=== PATIENT | male | born 1945 | race African-American/Black ===

== ENCOUNTER 2017-04-04 11:59 | Inpatient (IN) | payer BC, OTHER ==
--- NOTE | 2017-04-04 12:26 | PDOC ---
History of Present Illness - General Chief Complaint: Revisit, Lab Variance Stated Complaint: HIGH POTASSIUM LEVELS (PCP SENT) Time Seen by Provider: 04/04/17 12:17 History Source: Family - History of Present Illness Timing/Duration: other Associated Symptoms: reports: weakness. denies: chest pain, fever/chills, headaches, nausea/vomiting, shortness of breath Past History - Past Medical History Allergies/Adverse Reactions: Allergies Allergy/AdvReac Type Severity Reaction Status Date / Time No Known Drug Allergies Allergy Verified 04/04/17 12:08 Home Medications: Ambulatory Orders Metoprolol Succinate [Toprol Xl -] 50 mg PO DAILY 10/03/14 Olmesartan/Hydrochlorothiazide [Benicar Hct 20-12.5 mg Tablet] 1 each PO HS 12/10 Apixaban [Eliquis] 5 mg PO BID 06/03/15 Alphagan P 0.1% - 1 drop OS TID 04/04/17 Flomax 0.4 mg PO 04/04/17 Latanoprost 0.005% Eye Drops 1 drop OD DAILY 04/04/17 Neurontin 300 mg PO TID 04/04/17 Anemia: No Asthma: No Cancer: No Cardiac Disorders: Yes (PPM) CVA: Yes (TIA X2, CVA) COPD: No CHF: No Dementia: No Diabetes: No GI Disorders: No Disorders: No HTN: Yes Hypercholesterolemia: No Liver Disease: No Seizures: No Thyroid Disease: No - Surgical History Cardiac Surgery: Yes (PACEMAKER 2009) - Immunization History Immunization Up to Date: Yes - Suicide/Smoking/Psychosocial Hx Smoking History: Unknown if ever smoked Have you smoked in the past 12 months: No Hx Alcohol Use: No Drug/Substance Use Hx: No Substance Use Type: None Hx Substance Use Treatment: No Review of Systems - Review of Systems Constitutional: Yes: Weakness. No: Chills, Fever Respiratory: No: Cough, Shortness of Breath Cardiac (ROS): No: Chest Pain ABD/GI: Yes: Abdominal cramping. No: Constipated, Diarrhea, Nausea, Vomiting : Yes: Hematuria. No: Burning, Dysuria, Flank Pain *Physical Exam - Vital Signs Last Vital Signs Temp Pulse Resp BP Pulse Ox 97.5 F L 71 16 137/72 100 04/04/17 12:05 04/04/17 12:05 04/04/17 12:05 04/04/17 12:05 04/04/17 12:05 - Physical Exam General Appearance: Yes: Appropriately Dressed. No: Apparent Distress HEENT: positive: Normal Voice Neck: positive: Supple Respiratory/Chest: positive: Lungs Clear, Normal Breath Sounds. negative: Respiratory Distress Cardiovascular: positive: Regular Rate, S1, S2 Gastrointestinal/Abdominal: positive: Soft. 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 As per , patient was recently on vacation in [facility] where he developed generalized weakness with lower abdominal pain and hematuria. As per , patient went to the ER while in [facility] and had blood work done but was not transfused. [facility] they returned to the [facility] this week and was seen by Dr Tripp of urology yesterday and had lab work done and received call with results today. Patient denies any chest pain or shortness of breath : Dr Tripp PMD: Dr Gongora Spoke to covering M.Miguelangel. for Dr. Tripp, [facility] patient was seen by them for the first time yesterday for obstructive uropathy and had andres with leg bag placed. [facility] hemoglobin was 10.9, K was 6.2, and creatinine was 1.79. Based on labs here at [facility], last creatinine 06/13, was 1.5. Spoke to pt's PMD, Dr Gongora at [phone], [facility] Cr 03/14 was 1.08. Wants pt admitted for ARF which is most likely post-renal See exam ARF w/ hyperkalemia m/l 2/2 post renal (BPH) (see above notes) Pt w/ generalized weakness/malaise but stable w/ 350cc clear yellow urine in leg bag -rpt labs today -ekg -tx hyperK -admit 04/04/17 12:45 04/04/17 13:45 Signed out to resident Romero pending labs and admission to hospitalist *DC/Admit/Observation/Transfer Diagnosis at time of Disposition: Hyperkalemia - Referrals - Patient Instructions - Post Discharge Activity
[2017-04-04 13:12] LABS: BASO % 0.5 % (0-2.0); EOS % 1.2 % (0-4.5); HEMATOCRIT 31.7 % (35.4-49); HEMOGLOBIN 10.5 GM/dL (11.7-16.9); LYMPH % 16.6 % (8-40); MCH 32.2 pg (25.7-33.7); MCHC 33.1 g/dl (32.0-35.9); MEAN CELL VOLUME 97.4 fl (80-96); MEAN PLT VOLUME 8.3 fl (7.5-11.1); MONO % 6.2 % (3.8-10.2); NEUT % 75.5 % (42.8-82.8); PLATELET COUNT 292 K/MM3 (134-434); RBC 3.26 M/mm3 (4.00-5.60); RDW 13.8 % (11.9-15.9); WHITE BLOOD COUNT 11.5 K/mm3 (4.0-10.0)
[2017-04-04 13:13] LABS: URINE APPEARANCE SLCLOUDY; URINE BILIRUBIN NEGATIVE (NEGATIVE); URINE BLOOD 3+ (NEGATIVE); URINE COLOR YELLOW; URINE GLUCOSE (UA) NEGATIVE (NEGATIVE); URINE KETONE NEGATIVE (NEGATIVE); URINE NITRITE NEGATIVE (NEGATIVE); URINE PROTEIN NEGATIVE (NEGATIVE); URINE UROBILINOGEN NEGATIVE mg/dL (0.2-1.0)
[2017-04-04 13:14] LABS: URINE LEUK ESTERASE 2+ (NEGATIVE)
[2017-04-04 13:22] LABS: URINE BACTERIA RARE /hpf (NONE SEEN); URINE MUCUS RARE; YEAST FEW
[2017-04-04 13:38] LABS: ALBUMIN 3.4 g/dl (3.4-5.0); ANION GAP 3 (8-16); BILIRUBIN,TOTAL 0.3 mg/dL (0.2-1.0); BLOOD UREA NITROGEN 17 mg/dL (7-18); CALCIUM 8.5 mg/dL (8.5-10.1); CHLORIDE 104 mmol/L (98-107); CO2 27 mmol/L (21-32); CREATININE 1.8 mg/dL (0.7-1.3); GLUCOSE,RANDOM 133 mg/dL (74-106); SGOT/AST 22 U/L (15-37); SGPT/ALT 31 U/L (12-78); SODIUM 134 mmol/L (136-145); TOT PROT 7.3 g/dl (6.4-8.2)
[2017-04-04 13:40] LABS: ALK PHOS 55 U/L (45-117)
--- NOTE | 2017-04-04 14:00 | PDOC ---
*Physical Exam - Vital Signs Last Vital Signs Temp Pulse Resp BP Pulse Ox 97.5 F L 71 16 137/72 98 04/04/17 12:05 04/04/17 12:05 04/04/17 12:05 04/04/17 12:05 04/04/17 12:20 - Physical Exam Comments: 04/04/17 14:00 GENERAL/CONSTITUTIONAL: No fever or chills. No weakness. HEAD, EYES, EARS, NOSE AND THROAT: No change in vision. No ear pain or discharge. No sore throat.- CARDIOVASCULAR: No chest pain or shortness of breath RESPIRATORY: No cough, wheezing, or hemoptysis. GASTROINTESTINAL: No nausea, vomiting, diarrhea or constipation. GENITOURINARY: No dysuria, frequency, or change in urination. MUSCULOSKELETAL: No joint or muscle swelling or pain. No neck or back pain. SKIN: No rash NEUROLOGIC: No headache, vertigo, loss of consciousness, or change in strength/ sensation. ENDOCRINE: No increased thirst. No abnormal weight change HEMATOLOGIC/LYMPHATIC: No anemia, easy bleeding, or history of blood clots. ALLERGIC/IMMUNOLOGIC: No hives or skin allergy. ED Treatment Course - LABORATORY CBC & Chemistry Diagram: 04/04/17 18:45 04/05/17 05:23 - ADDITIONAL ORDERS Additional order review: Laboratory Results 04/04/17 04/04/17 13:00 13:00 Alkaline Phosphatase 55 Creatine Kinase 156 Troponin I < 0.02 Urine Color Yellow Urine Appearance Slcloudy Urine pH 6.0 Ur Specific [place] 1.006 Urine Protein Negative Urine Glucose (UA) Negative Urine Ketones Negative Urine Blood 3+ H Urine Nitrite Negative Urine Bilirubin Negative Urine Urobilinogen Negative Urine WBC (Auto) 16 Urine RBC (Auto) 57 Urine Bacteria Rare Urine Mucus Rare Urine Yeast Few 04/04/17 13:00 RBC 3.26 L D MCV 97.4 H MCHC 33.1 RDW 13.8 MPV 8.3 D Neutrophils % 75.5 Lymphocytes % 16.6 Monocytes % 6.2 Eosinophils % 1.2 D Basophils % 0.5 Medical Decision Making - Medical Decision Making 04/04/17 14:01 Received handoff by Amelia HERNANDEZ. 71 yo M with h/o CVA and HTN, DM, BPH, residual L sided motor deficit/aphasia, A -fib on Elquis, s/p pacemaker placement, arrives via referral by PMD for hyperkalemia and anemia on lab evaluation obtained yesterday in Dr. Tripp Urology office. Patient experiencing generalized weakness, lower abdominal pain , and hematuria, following vacation in [facility]. Patient denies associated complaints. ED Course notable for conversation with Dr. Tripp who states patient was seen by them for the first time yesterday for obstructive uropathy and had andres with leg bag placed. Hgb 10.9, K 6.2, and cr 1.79 ( baseline 1.08). PMD , Dr Gongora at ([phone]), advises pt to be admitted for obstructive renal failure most likely 2/2 BPH. [address] UOP andres. PCP Dr. Jesus Tripp. ED Course: 04/04/17 14:42 WBC: 11.5 04/04/17 14:42 K+ 6.0 04/04/17 15:23 D5 50 mg, NaHCO3 8.4 % 50 MeQ, Kayexylate, Insulin 10 U UA: 04/04/17 15:24 EKG: Ventricular paced rhythm with absent REINALDO, STD. Absent P waves. Will admit to Dr. Brewer for BRAD and hyperkalemia. *DC/Admit/Observation/Transfer Diagnosis at time of Disposition: Hyperkalemia - Discharge Dispostion Admit: Yes - Referrals - Patient Instructions - Post Discharge Activity
[2017-04-04 14:01] LABS: INR 1.63 (0.82-1.09); PROTHROMBIN TIME (PATIENT) 18.4 SEC (9.98-11.88)
[2017-04-04] MEDS ORDERED: SODIUM BICARBONATE 8.4% 50 MEQ/50 ML VIAL IV ONE (14:45)
[2017-04-04] MEDS ORDERED: INSULIN REGULAR HUMAN 100 UNITS/ML *VIAL IVPUSH ONE (14:45)
[2017-04-04] MEDS ORDERED: DEXTROSE 50%-WATER - 25 GM/50 ML VIAL IVPUSH ONE ×2 (14:45→15:14)
[2017-04-04] MEDS ORDERED: SODIUM POLYSTYRENE SULFONATE 15 GM/60 ML BOTTLE PO ONE (14:48)
[2017-04-04] MEDS ORDERED: DEXTROSE 50%-WATER - 25 GM/50 ML VIAL ONE (15:16)
[2017-04-04] MEDS ORDERED: INSULIN NPH 100 UNITS/ML *VIAL ONE (15:17)
[2017-04-04] MEDS ORDERED: SODIUM POLYSTYRENE SULFONATE 15 GM/60 ML BOTTLE ONE (15:17)
[2017-04-04] MEDS ORDERED: SODIUM BICARBONATE 8.4% - 50 ML ONE (15:17)
--- NOTE | 2017-04-04 16:32 | EKG ---
Test Reason : Blood Pressure : / mmHG Vent. Rate : 066 BPM Atrial Rate : 066 BPM P-R Int : 000 ms QRS Dur : 136 ms QT Int : 434 ms P-R-T Axes : 000 -86 078 degrees QTc Int : 454 ms Ventricular-paced rhythm ABNORMAL ECG WHEN COMPARED WITH ECG OF 04-JUN-2015 00:01, ELECTRONIC VENTRICULAR PACEMAKER HAS REPLACED ATRIAL FIBRILLATION Confirmed by MD KATHYA, ROXANNA ([id number]) on 04/04/2017 4:31:50 PM Referred By: Confirmed By:ROXANNA RASHEED MD
--- NOTE | 2017-04-04 16:54 | CONSULT ---
Consult Consult Specialty:: Nephrology Reason for Consultation:: hyperkalemia - History of Present Illness Chief Complaint: sent in for hyperkalemia History of Present Illness: Pt is a 71 year old male with pmhx of CVA, a-fib, HTN, BPH, DM and obstructive uropathy who was sent in to the ER for hyperkalemia. Bloodwork was done in ER and he was found to have a potassium of 6. I was called to evaluate him for CKD and hyperkalemia. He is accompanied by his who assisted with history. He does not have chest pain or shortness of breath. Pt does not have palpitations. He follows with Dr Bustamante of urology and has an indwelling andres with a leg bag. He was on an ARB as outpt. - History Source History Provided By: Family Member, Medical Record - Past Medical History [employer]: Yes: CVA Cardio/Vascular: Yes: AFIB, HTN Renal/: Yes: Renal Inusuff, BPH Endocrine: Yes: Diabetes Mellitus - Past Surgical History Past Surgical History: Yes: Permanent Pacemaker - Alcohol/Substance Use Hx Alcohol Use: No - Smoking History Smoking history: Unknown if ever smoked Have you smoked in the past 12 months: No Home Medications - Allergies Allergies/Adverse Reactions: Allergies Allergy/AdvReac Type Severity Reaction Status Date / Time No Known Drug Allergies Allergy Verified 04/04/17 12:08 - Home Medications Home Medications: Ambulatory Orders Metoprolol Succinate [Toprol Xl -] 50 mg PO DAILY 10/03/14 Olmesartan/Hydrochlorothiazide [Benicar Hct 20-12.5 mg Tablet] 1 each PO HS 12/10 Apixaban [Eliquis] 0 mg PO BID 06/03/15 Family Disease History - Family Disease History Family History: Denies Review of Systems - Review of Systems Constitutional: reports: Malaise, Weakness Eyes: reports: No Symptoms HENT: reports: No Symptoms Neck: reports: No Symptoms Cardiovascular: reports: No Symptoms Respiratory: reports: No Symptoms Gastrointestinal: reports: No Symptoms Genitourinary: reports: Other (indwelling andres) Musculoskeletal: reports: Muscle Weakness Neurological: reports: Pre-Existing Deficit Endocrine: reports: No Symptoms Hematology/Lymphatic: reports: No Symptoms Psychiatric: reports: No Symptoms Physical Exam Vital Signs: Vital Signs Temperature 97.5 F L 04/04/17 12:05 Pulse Rate 71 12/08/17 12:05 Respiratory Rate 16 04/04/17 12:05 Blood Pressure 137/72 04/04/17 12:05 O2 Sat by Pulse Oximetry (%) 98 04/04/17 12:20 Constitutional: Yes: Calm Eyes: Yes: Conjunctiva Clear HENT: Yes: Atraumatic Cardiovascular: Yes: S1, S2 Respiratory: Yes: CTA Bilaterally Gastrointestinal: Yes: Soft Renal/: Yes: Andres Present Musculoskeletal: Yes: WNL Edema: No Neurological: Yes: Pre-Existing Deficit Labs: CBC, BMP 04/04/17 13:00 04/04/17 13:00 Laboratory Tests 06/03/15 04/04/17 04/04/17 23:50 13:00 13:00 Hgb 10.5 L D Sodium Potassium Chloride Carbon Dioxide Anion Gap Creatinine 1.5 H Creat Clearance w eGFR Random Glucose Urine Protein Negative Urine Blood 3+ H 04/04/17 13:00 Hgb Sodium 134 L Potassium 6.0 H D Chloride 104 Carbon Dioxide 27 Anion Gap 3 L Creatinine 1.8 H Creat Clearance w eGFR 37.27 Random Glucose 133 H Urine Protein Urine Blood Problem List - Problems (1) CKD (chronic kidney disease) Code(s): N18.9 - CHRONIC KIDNEY DISEASE, UNSPECIFIED (2) HTN (hypertension) Code(s): I10 - ESSENTIAL (PRIMARY) HYPERTENSION (3) Atrial fibrillation Code(s): I48.91 - UNSPECIFIED ATRIAL FIBRILLATION (4) CVA (cerebral vascular accident) Code(s): I63.9 - CEREBRAL INFARCTION, UNSPECIFIED (5) Hyperkalemia Code(s): E87.5 - HYPERKALEMIA Assessment/Plan Current Medications Generic Name Dose Route Start Last Admin Trade Name Freq PRN Reason Stop Dose Admin Sodium Chloride 1,000 mls @ 100 mls/hr 04/04/17 17:00 Normal Saline - IV 04/04/17 21:59 ASDIR SUJATHA Impression 1. hyperkalemia 2. CKD 3. htn 4. a-fib 5. weakness 6. hx CVA 7. urinary obstruction with indwelling andres 8. leukocytosis Plan - potassium treated medically in ER - repeat bmp to see response - will start gentle hydration - send urine culture - send blood cultures - hold olmesartan for now - renal diet - will need renal workup which can be done as outpt - will follow
[2017-04-04] MEDS ORDERED: SODIUM CHLORIDE 1,000 ML IV SCH (17:00)
[2017-04-04 19:03] LABS: BASO % 0.6 % (0-2.0); HEMOGLOBIN 10.5 GM/dL (11.7-16.9); LYMPH % 11.7 % (8-40); MCH 32.9 pg (25.7-33.7); MEAN CELL VOLUME 96.6 fl (80-96); MEAN PLT VOLUME 8.1 fl (7.5-11.1); MONO % 5.8 % (3.8-10.2); NEUT % 80.9 % (42.8-82.8); PLATELET COUNT 297 K/MM3 (134-434); RDW 13.5 % (11.9-15.9); WHITE BLOOD COUNT 14.4 K/mm3 (4.0-10.0)
[2017-04-04 19:49] LABS: ALBUMIN 3.4 g/dl (3.4-5.0); ANION GAP 6 (8-16); BILIRUBIN,TOTAL 0.5 mg/dL (0.2-1.0); BLOOD UREA NITROGEN 16 mg/dL (7-18); CHLORIDE 106 mmol/L (98-107); CO2 27 mmol/L (21-32); CREATININE 1.7 mg/dL (0.7-1.3); GLUCOSE,RANDOM 75 mg/dL (74-106); POTASSIUM 5.1 mmol/L (3.5-5.1); SGOT/AST 26 U/L (15-37); SGPT/ALT 34 U/L (12-78); SODIUM 139 mmol/L (136-145); TOT PROT 7.1 g/dl (6.4-8.2)
[2017-04-04 19:50] LABS: ALK PHOS 55 U/L (45-117)
[2017-04-04] MEDS ORDERED: CEFTRIAXONE 1 GM/50 ML BAG ONE (20:11)
[2017-04-04 21:31] VITALS: BMI 22.8
[2017-04-05] MEDS: GABAPENTIN 300 MG CAPSULE (FP) PO SCH ×3 (06:12→21:23)
[2017-04-05] MEDS: BRIMONIDINE TARTRATE 0.1% OPHTHALMIC 5 ML BOTTLE OS SCH ×3 (06:28→21:23)
[2017-04-05] MEDS ORDERED: PT OWN MED DRAWER 7, Y5N ONE ×4 (06:32→21:12)
[2017-04-05 08:24] LABS: ANION GAP 6 (8-16); BLOOD UREA NITROGEN 19 mg/dL (7-18); CALCIUM 8.4 mg/dL (8.5-10.1); CHLORIDE 102 mmol/L (98-107); CO2 30 mmol/L (21-32); CREATININE 1.7 mg/dL (0.7-1.3); GLUCOSE,RANDOM 82 mg/dL (74-106); POTASSIUM 5.3 mmol/L (3.5-5.1); SODIUM 138 mmol/L (136-145)
[2017-04-05] MEDS: VALSARTAN 160 MG TABLET (UD) PO SCH (09:29)
[2017-04-05] MEDS: LATANOPROST 0.005% OPHTH SOLN 2.5ML BOTTLE OD SCH (09:29)
[2017-04-05] MEDS: TAMSULOSIN HCL 0.4 MG CAP.ER.24H (FP) PO SCH (09:29)
[2017-04-05] MEDS: HYDROCHLOROTHIAZIDE 12.5 MG CAPSULE (FP) PO SCH (09:29)
[2017-04-05] MEDS: APIXABAN 5 MG TABLET PO SCH ×2 (09:30→21:23)
--- NOTE | 2017-04-05 14:35 | PN ---
Progress Note (short form) - Note Progress Note: 1. hyperkalemia 2. CKD 3. htn 4. a-fib 5. weakness 6. hx CVA 7. urinary obstruction with indwelling andres 8. leukocytosis Current Medications Apixaban (Eliquis -) 5 mg PO BID [facility] Last Admin: 04/05/17 09:30 Dose: 5 mg Brimonidine Tartrate (Alphagan P 0.1% -) 1 drop OS TID [facility] Last Admin: 04/05/17 06:28 Dose: 1 drop Gabapentin (Neurontin -) 300 mg PO TID [facility] Last Admin: 04/05/17 06:12 Dose: 300 mg Hydrochlorothiazide (Hctz -) 12.5 mg PO DAILY [facility] Last Admin: 04/05/17 09:29 Dose: 12.5 mg Latanoprost (Xalatan 0.005% Eye Drops -) 1 drop OD DAILY [facility] Last Admin: 04/05/17 09:29 Dose: 1 drop Metoprolol Succinate (Toprol Xl -) 50 mg PO DAILY [facility] Last Admin: 04/05/17 09:29 Dose: 50 mg Tamsulosin HCl (Flomax -) 0.4 mg PO DAILY@0830 [facility] Last Admin: 04/05/17 09:29 Dose: 0.4 mg Valsartan (Diovan -) 160 mg PO DAILY [facility] Last Admin: 04/05/17 09:29 Dose: 160 mg Last Vital Signs Temp Pulse Resp BP Pulse Ox 97.7 F 60 18 104/62 97 04/05/17 08:09 04/05/17 08:09 04/05/17 08:09 04/05/17 08:09 04/05/17 08:42 CBC, BMP 04/04/17 18:45 04/05/17 05:23 IMP ckd priti on chronic hyperkalemia Plan - follow bmp to see response - will start gentle hydration - send urine culture - send blood cultures - hold olmesartan for now - renal diet - will need renal workup which can be done as outpt - will follow
[2017-04-05] MEDS ORDERED: PATIENT'S OWN MEDICATION (NON-FORMULARY) (Olmesartan/Hydrochlorothiazide [Benicar Hct 20-1 PO SCH (22:00)
--- NOTE | 2017-04-06 00:08 | HP ---
Admitting History and Physical - Admission Chief Complaint: Pt seen and examined on 04/05/17 however note was entered late History of Present Illness: Pt is a 71 y/o male who is a poor historian w/ PMH significant for CVA w/ lt sided weakness/aphasia, HTN, diabetes ad BPH. Pt was sent by his urologist bc of abnormal blood work. In the ER pt was found to have K+ of 6.2 wc was treated and also to have acute renal failure. As per medical record pt recently returned from [facility] and had complaints of lower abdominal pain/weakness/ hematuria. - Past Medical History [employer]: Yes: CVA Cardiovascular: Yes: AFIB, HTN Renal/: Yes: Renal Inusuff, BPH Endocrine: Yes: Diabetes Mellitus - Past Surgical History Past Surgical History: Yes: Permanent Pacemaker - Smoking History Smoking history: Unknown if ever smoked Have you smoked in the past 12 months: No - Alcohol/Substance Use Hx Alcohol Use: No Home Medications - Allergies Allergies/Adverse Reactions: Allergies Allergy/AdvReac Type Severity Reaction Status Date / Time No Known Drug Allergies Allergy Verified 04/04/17 12:08 - Home Medications Home Medications: Ambulatory Orders Metoprolol Succinate [Toprol Xl -] 50 mg PO DAILY 10/03/14 Olmesartan/Hydrochlorothiazide [Benicar Hct 20-12.5 mg Tablet] 1 each PO HS 12/10 Apixaban [Eliquis] 5 mg PO BID 06/03/15 Alphagan P 0.1% - 1 drop OS TID 04/04/17 Flomax 0.4 mg PO 04/04/17 Latanoprost 0.005% Eye Drops 1 drop OD DAILY 04/04/17 Neurontin 300 mg PO TID 04/04/17 Family Disease History - Family Disease History Family History: Unable to Obtain Review of Systems Unable to obtain ROS, reason: CVA/aphasia Physical Examination Vital Signs: Vital Signs Temperature 98 F 04/05/17 14:36 Pulse Rate 60 04/05/17 14:36 Respiratory Rate 18 04/05/17 14:36 Blood Pressure 107/58 04/05/17 14:36 O2 Sat by Pulse Oximetry (%) 97 04/05/17 22:00 Constitutional: Yes: No Distress HENT: Yes: WNL Neck: Yes: WNL, Supple Cardiovascular: Yes: WNL, Regular Rate and Rhythm Respiratory: Yes: WNL, Regular, CTA Bilaterally Gastrointestinal: Yes: WNL, Normal Bowel Sounds, Soft Extremities: Yes: WNL Edema: No Labs: CBC, BMP 04/04/17 18:45 04/05/17 05:23 Problem List - Problems (1) Hyperkalemia Code(s): E87.5 - HYPERKALEMIA (2) Acute renal failure Assessment/Plan: Gently IV hydration Renal consult Pt has h/o BPH ?obstructive uropathy Monitor urine culture Code(s): N17.9 - ACUTE KIDNEY FAILURE, UNSPECIFIED (3) Atrial fibrillation Assessment/Plan: Heart rate controlled Cont eliquis Code(s): I48.91 - UNSPECIFIED ATRIAL FIBRILLATION (4) HTN (hypertension) Assessment/Plan: BP stable Cont diovan/hctz Code(s): I10 - ESSENTIAL (PRIMARY) HYPERTENSION (5) BPH (benign prostatic hyperplasia) Assessment/Plan: Cont flomax Code(s): N40.0 - BENIGN PROSTATIC HYPERPLASIA WITHOUT LOWER URINRY TRACT SYMP (6) CVA (cerebral vascular accident) Code(s): I63.9 - CEREBRAL INFARCTION, UNSPECIFIED (7) Diabetes Assessment/Plan: ?Pt not on any meds Check HgA1c Code(s): E11.9 - TYPE 2 DIABETES MELLITUS WITHOUT COMPLICATIONS
[2017-04-06] MEDS: GABAPENTIN 300 MG CAPSULE (FP) PO SCH ×3 (05:37→21:43)
[2017-04-06] MEDS: BRIMONIDINE TARTRATE 0.1% OPHTHALMIC 5 ML BOTTLE OS SCH ×3 (05:37→21:46)
[2017-04-06 08:15] LABS: BASO % 0.8 % (0-2.0); EOS % 1.6 % (0-4.5); HEMATOCRIT 32.2 % (35.4-49); LYMPH % 22.6 % (8-40); MCH 32.6 pg (25.7-33.7); MEAN CELL VOLUME 95.9 fl (80-96); MEAN PLT VOLUME 8.2 fl (7.5-11.1); MONO % 4.8 % (3.8-10.2); NEUT % 70.2 % (42.8-82.8); PLATELET COUNT 314 K/MM3 (134-434); RBC 3.36 M/mm3 (4.00-5.60); RDW 13.2 % (11.9-15.9); WHITE BLOOD COUNT 10.7 K/mm3 (4.0-10.0)
[2017-04-06 09:08] LABS: ALBUMIN 3.1 g/dl (3.4-5.0); ANION GAP 6 (8-16); BILIRUBIN,TOTAL 0.6 mg/dL (0.2-1.0); BLOOD UREA NITROGEN 17 mg/dL (7-18); CALCIUM 8.1 mg/dL (8.5-10.1); CHLORIDE 103 mmol/L (98-107); CO2 29 mmol/L (21-32); CREATININE 1.7 mg/dL (0.7-1.3); GLUCOSE,RANDOM 99 mg/dL (74-106); POTASSIUM 4.7 mmol/L (3.5-5.1); SGOT/AST 16 U/L (15-37); SGPT/ALT 27 U/L (12-78); SODIUM 138 mmol/L (136-145)
[2017-04-06 09:09] LABS: ALK PHOS 55 U/L (45-117)
[2017-04-06] MEDS ORDERED: PT OWN MED DRAWER 7, Y5N ONE ×4 (09:19→21:45)
[2017-04-06] MEDS: HYDROCHLOROTHIAZIDE 12.5 MG CAPSULE (FP) PO SCH (09:21)
[2017-04-06] MEDS: VALSARTAN 160 MG TABLET (UD) PO SCH (09:21)
[2017-04-06] MEDS: APIXABAN 5 MG TABLET PO SCH ×2 (09:21→21:44)
[2017-04-06] MEDS: TAMSULOSIN HCL 0.4 MG CAP.ER.24H (FP) PO SCH (09:21)
[2017-04-06] MEDS: LATANOPROST 0.005% OPHTH SOLN 2.5ML BOTTLE OD SCH (09:22)
[2017-04-06] MEDS: CEFTRIAXONE 1 G/50 ML PREMIX 50 ML IVPB SCH (13:40)
--- NOTE | 2017-04-06 19:19 | PN ---
Progress Note (short form) - Note Progress Note: 1. hyperkalemia 2. CKD 3. htn 4. a-fib 5. weakness 6. hx CVA 7. urinary obstruction with indwelling andres 8. leukocytosis Active Medications Apixaban (Eliquis -) 5 mg PO BID [facility] Last Admin: 04/06/17 09:21 Dose: 5 mg Brimonidine Tartrate (Alphagan P 0.1% -) 1 drop OS TID [facility] Last Admin: 04/06/17 13:40 Dose: 1 drop Gabapentin (Neurontin -) 300 mg PO TID [facility] Last Admin: 04/06/17 13:40 Dose: 300 mg Hydrochlorothiazide (Hctz -) 12.5 mg PO DAILY [facility] Last Admin: 04/06/17 09:21 Dose: 12.5 mg CEFTRIAXONE 1 G/50 ML PREMIX (Ceftriaxone 1 Gm-D5w Bag) 50 mls @ 100 mls/hr IVPB DAILY [facility] Last Admin: 04/06/17 13:40 Dose: 100 mls/hr Latanoprost (Xalatan 0.005% Eye Drops -) 1 drop OD DAILY [facility] Last Admin: 04/06/17 09:22 Dose: 1 drop Metoprolol Succinate (Toprol Xl -) 50 mg PO DAILY [facility] Last Admin: 04/06/17 09:21 Dose: 50 mg Tamsulosin HCl (Flomax -) 0.4 mg PO DAILY@0830 [facility] Last Admin: 04/06/17 09:21 Dose: 0.4 mg Valsartan (Diovan -) 160 mg PO DAILY [facility] Last Admin: 04/06/17 09:21 Dose: 160 mg Last Vital Signs Temp Pulse Resp BP Pulse Ox 98.6 F 61 18 99/58 98 04/06/17 15:06 04/06/17 15:06 04/06/17 15:06 04/06/17 15:06 04/06/17 08:32 CBC, BMP 04/06/17 07:00 04/06/17 07:00 IMP ckd priti on chronic hyperkalemia Plan continue to monitor labs encourage hydration
--- NOTE | 2017-04-06 23:34 | PN ---
Progress Note, Physician History of Present Illness: No new complaints - Current Medication List Current Medications: Active Medications Apixaban (Eliquis -) 5 mg PO BID [facility] Last Admin: 04/06/17 21:44 Dose: 5 mg Brimonidine Tartrate (Alphagan P 0.1% -) 1 drop OS TID [facility] Last Admin: 04/06/17 21:46 Dose: 1 drop Gabapentin (Neurontin -) 300 mg PO TID [facility] Last Admin: 04/06/17 21:43 Dose: 300 mg Hydrochlorothiazide (Hctz -) 12.5 mg PO DAILY [facility] Last Admin: 04/06/17 09:21 Dose: 12.5 mg CEFTRIAXONE 1 G/50 ML PREMIX (Ceftriaxone 1 Gm-D5w Bag) 50 mls @ 100 mls/hr IVPB DAILY [facility] Last Admin: 04/06/17 13:40 Dose: 100 mls/hr Latanoprost (Xalatan 0.005% Eye Drops -) 1 drop OD DAILY [facility] Last Admin: 04/06/17 09:22 Dose: 1 drop Metoprolol Succinate (Toprol Xl -) 50 mg PO DAILY [facility] Last Admin: 04/06/17 09:21 Dose: 50 mg Tamsulosin HCl (Flomax -) 0.4 mg PO DAILY@0830 [facility] Last Admin: 04/06/17 09:21 Dose: 0.4 mg Valsartan (Diovan -) 160 mg PO DAILY [facility] Last Admin: 04/06/17 09:21 Dose: 160 mg - Objective Vital Signs: Vital Signs Temperature 98.6 F 04/06/17 15:06 Pulse Rate 61 04/06/17 15:06 Respiratory Rate 18 04/06/17 15:06 Blood Pressure 99/58 04/06/17 15:06 O2 Sat by Pulse Oximetry (%) 98 04/06/17 08:32 Constitutional: Yes: No Distress HENT: Yes: WNL Neck: Yes: WNL, Supple Cardiovascular: Yes: WNL, Regular Rate and Rhythm Respiratory: Yes: WNL, Regular, CTA Bilaterally Gastrointestinal: Yes: WNL, Normal Bowel Sounds, Soft Labs: CBC, BMP 04/06/17 07:00 04/06/17 07:00 INR, PTT INR 1.63 (0.82-1.09) H D 04/04/17 13:00 Problem List - Problems (1) Bacteremia Assessment/Plan: Blood culture (+) fo bacillus species Await final cutlure Due to UTI Cont IV antibx ID consult Code(s): R78.81 - BACTEREMIA (2) Acute renal failure Assessment/Plan: Gently IV hydration Renal consult noted Pt has h/o BPH ?obstructive uropathy Urine culture positive for lactose fermenting bacilli Uro/ID consults Monitor WBC Code(s): N17.9 - ACUTE KIDNEY FAILURE, UNSPECIFIED (3) Atrial fibrillation Assessment/Plan: Heart rate controlled Cont eliquis Code(s): I48.91 - UNSPECIFIED ATRIAL FIBRILLATION (4) BPH (benign prostatic hyperplasia) Assessment/Plan: Cont flomax Code(s): N40.0 - BENIGN PROSTATIC HYPERPLASIA WITHOUT LOWER URINRY TRACT SYMP (5) CVA (cerebral vascular accident) Code(s): I63.9 - CEREBRAL INFARCTION, UNSPECIFIED (6) Diabetes Code(s): E11.9 - TYPE 2 DIABETES MELLITUS WITHOUT COMPLICATIONS (7) HTN (hypertension) Code(s): I10 - ESSENTIAL (PRIMARY) HYPERTENSION (8) Hyperkalemia Assessment/Plan: Resolved Code(s): E87.5 - HYPERKALEMIA
[2017-04-07] MEDS: GABAPENTIN 300 MG CAPSULE (FP) PO SCH ×3 (06:12→21:09)
[2017-04-07] MEDS: BRIMONIDINE TARTRATE 0.1% OPHTHALMIC 5 ML BOTTLE OS SCH ×4 (06:12→21:09)
[2017-04-07] MEDS ORDERED: PT OWN MED DRAWER 7, Y5N ONE ×5 (06:14→20:55)
[2017-04-07 07:19] LABS: BASO % 0.7 % (0-2.0); EOS % 2.1 % (0-4.5); HEMOGLOBIN 11.2 GM/dL (11.7-16.9); LYMPH % 26.8 % (8-40); MCH 32.5 pg (25.7-33.7); MCHC 33.8 g/dl (32.0-35.9); MEAN CELL VOLUME 96.1 fl (80-96); MEAN PLT VOLUME 8.2 fl (7.5-11.1); MONO % 5.7 % (3.8-10.2); NEUT % 64.7 % (42.8-82.8); PLATELET COUNT 311 K/MM3 (134-434); RBC 3.43 M/mm3 (4.00-5.60); RDW 13.2 % (11.9-15.9); WHITE BLOOD COUNT 11.2 K/mm3 (4.0-10.0)
[2017-04-07 08:16] LABS: ALBUMIN 3.3 g/dl (3.4-5.0); ANION GAP 7 (8-16); BLOOD UREA NITROGEN 20 mg/dL (7-18); CALCIUM 8.8 mg/dL (8.5-10.1); CHLORIDE 101 mmol/L (98-107); CO2 29 mmol/L (21-32); GLUCOSE,RANDOM 97 mg/dL (74-106); POTASSIUM 4.9 mmol/L (3.5-5.1); SODIUM 137 mmol/L (136-145)
[2017-04-07 08:20] LABS: ALK PHOS 54 U/L (45-117); BILIRUBIN,TOTAL 0.4 mg/dL (0.2-1.0); CREATININE 1.4 mg/dL (0.7-1.3); SGOT/AST 14 U/L (15-37); SGPT/ALT 25 U/L (12-78)
[2017-04-07] MEDS: VALSARTAN 160 MG TABLET (UD) PO SCH (09:19)
[2017-04-07] MEDS: APIXABAN 5 MG TABLET PO SCH ×2 (09:19→21:09)
[2017-04-07] MEDS: HYDROCHLOROTHIAZIDE 12.5 MG CAPSULE (FP) PO SCH (09:19)
[2017-04-07] MEDS: TAMSULOSIN HCL 0.4 MG CAP.ER.24H (FP) PO SCH (09:19)
[2017-04-07] MEDS: CEFTRIAXONE 1 G/50 ML PREMIX 50 ML IVPB SCH (09:20)
[2017-04-07] MEDS: LATANOPROST 0.005% OPHTH SOLN 2.5ML BOTTLE OD SCH (09:27)
--- NOTE | 2017-04-07 12:28 | PN ---
Progress Note, Physician History of Present Illness: Pt seen and examined at bedside. He appears comfortable. is at bedside and care was discussed with her. - Current Medication List Current Medications: Active Medications Apixaban (Eliquis -) 5 mg PO BID [facility] Last Admin: 04/07/17 09:19 Dose: 5 mg Brimonidine Tartrate (Alphagan P 0.1% -) 1 drop OS TID [facility] Last Admin: 04/07/17 06:12 Dose: 1 drop Gabapentin (Neurontin -) 300 mg PO TID [facility] Last Admin: 04/07/17 06:12 Dose: 300 mg Hydrochlorothiazide (Hctz -) 12.5 mg PO DAILY [facility] Last Admin: 04/07/17 09:19 Dose: 12.5 mg CEFTRIAXONE 1 G/50 ML PREMIX (Ceftriaxone 1 Gm-D5w Bag) 50 mls @ 100 mls/hr IVPB DAILY [facility] Last Admin: 04/07/17 09:20 Dose: 100 mls/hr Latanoprost (Xalatan 0.005% Eye Drops -) 1 drop OD DAILY [facility] Last Admin: 04/07/17 09:27 Dose: 1 drop Metoprolol Succinate (Toprol Xl -) 50 mg PO DAILY [facility] Last Admin: 04/07/17 09:19 Dose: 50 mg Tamsulosin HCl (Flomax -) 0.4 mg PO DAILY@0830 [facility] Last Admin: 04/07/17 09:19 Dose: 0.4 mg Valsartan (Diovan -) 160 mg PO DAILY [facility] Last Admin: 04/07/17 09:19 Dose: 160 mg - Objective Vital Signs: Vital Signs Temperature 97.8 F 04/07/17 08:08 Pulse Rate 60 04/07/17 08:08 Respiratory Rate 18 04/07/17 08:08 Blood Pressure 104/64 04/07/17 08:08 O2 Sat by Pulse Oximetry (%) 98 04/07/17 09:00 Constitutional: Yes: Calm Eyes: Yes: Conjunctiva Clear HENT: Yes: Atraumatic Neck: Yes: Supple Cardiovascular: Yes: S1, S2 Respiratory: Yes: CTA Bilaterally Gastrointestinal: Yes: Normal Bowel Sounds, Soft Genitourinary: Yes: Andres Present Musculoskeletal: Yes: Muscle Weakness Edema: No Neurological: Yes: Pre-Existing Deficit Labs: CBC, BMP 04/07/17 06:20 04/07/17 06:20 INR, PTT INR 1.63 (0.82-1.09) H D 04/04/17 13:00 Problem List - Problems (1) CKD (chronic kidney disease) Code(s): N18.9 - CHRONIC KIDNEY DISEASE, UNSPECIFIED (2) HTN (hypertension) Code(s): I10 - ESSENTIAL (PRIMARY) HYPERTENSION (3) Atrial fibrillation Code(s): I48.91 - UNSPECIFIED ATRIAL FIBRILLATION (4) CVA (cerebral vascular accident) Code(s): I63.9 - CEREBRAL INFARCTION, UNSPECIFIED (5) Hyperkalemia Code(s): E87.5 - HYPERKALEMIA Assessment/Plan Current Medications Generic Name Dose Route Start Last Admin Trade Name Shaggy PRN Reason Stop Dose Admin Apixaban 5 mg 04/05/17 10:00 04/07/17 09:19 Eliquis - PO 5 mg BID SUJATHA Administration Brimonidine Tartrate 1 drop 04/05/17 06:00 04/07/17 06:12 Alphagan P 0.1% - OS 1 drop TID SUJATHA Administration Gabapentin 300 mg 04/05/17 06:00 04/07/17 06:12 Neurontin - PO 300 mg TID SUJATHA Administration Hydrochlorothiazide 12.5 mg 04/05/17 10:00 04/07/17 09:19 Hctz - PO 12.5 mg DAILY SUJATHA Administration CEFTRIAXONE 1 G/50 ML PREMIX 50 mls @ 100 mls/hr 04/06/17 13:00 04/07/17 09: 20 Ceftriaxone 1 Gm-D5w Bag IVPB 100 mls/hr DAILY SUJATHA Administration Latanoprost 1 drop 04/05/17 10:00 04/07/17 09:27 Xalatan 0.005% Eye Drops - OD 1 drop DAILY SUJATHA Administration Metoprolol Succinate 50 mg 04/05/17 10:00 04/07/17 09:19 Toprol Xl - PO 50 mg DAILY SUAJTHA Administration Tamsulosin HCl 0.4 mg 04/05/17 08:30 04/07/17 09:19 Flomax - PO 0.4 mg DAILY@0830 SUJATHA Administration Valsartan 160 mg 04/05/17 10:00 04/07/17 09:19 Diovan - PO 160 mg DAILY SUJATHA Administration Impression 1. hyperkalemia 2. CKD 3. htn 4. a-fib 5. weakness 6. hx CVA 7. urinary obstruction with indwelling andres 8. leukocytosis Plan - monitor on low potassium diet - bp is low, decrease dose of diovan to 80 mg - discussed with urology, pt going for cysto as outpt - will complete renal workup in office - creatinine is improving - renal diet, low potassium - will follow
[2017-04-07] MEDS ORDERED: ERTAPENEM SODIUM 1 GM/50 ML PRE-DOCKED IVPB SCH (13:15)
[2017-04-07] MEDS ORDERED: ERTAPENEM SODIUM 1 GM in DEXTROSE 5%-WATER - 50 ML IVPB SCH (14:00)
--- NOTE | 2017-04-07 14:38 | CON.ID ---
Consult - History of Present Illness History of Present Illness: Asked to evaluate this 71 y.o. [place] male with PMH of CVA with aphasia/Lt hemiparesis, BPH, HTN, AFIB, s/p PPM, DM who reportedly initially had hematuria and lower abd pain. He was seen by urology as outpatient and a andres was placed for obstructive uropathy. Pt was sent to ER for abnormal lab results. He was found to have hyperkalemia and BRAD. He has had mild leukocytosis (wbc up to 14K ) and urine culture reveals growth of Klebsiella. Pt currently at bedside appears alert and stable. Unable to obtain history from patient himself as he is aphasic. - History Source History Provided By: Medical Record Limitations to Obtaining History: Other (pt is aphasic s/p CVA) - Past Medical History CLINICAL DOCUMENTATION SPEC: Yes: CVA Cardio/Vascular: Yes: AFIB, HTN Renal/: Yes: Renal Inusuff, BPH Endocrine: Yes: Diabetes Mellitus - Past Surgical History Past Surgical History: Yes: Permanent Pacemaker - Alcohol/Substance Use Hx Alcohol Use: No - Smoking History Smoking history: Unknown if ever smoked Have you smoked in the past 12 months: No Home Medications - Allergies Allergies/Adverse Reactions: Allergies Allergy/AdvReac Type Severity Reaction Status Date / Time No Known Drug Allergies Allergy Verified 04/04/17 12:08 - Home Medications Home Medications: Ambulatory Orders Metoprolol Succinate [Toprol Xl -] 50 mg PO DAILY 10/03/14 Olmesartan/Hydrochlorothiazide [Benicar Hct 20-12.5 mg Tablet] 1 each PO HS 12/10 Apixaban [Eliquis] 5 mg PO BID 06/03/15 Alphagan P 0.1% - 1 drop OS TID 04/04/17 Flomax 0.4 mg PO 04/04/17 Latanoprost 0.005% Eye Drops 1 drop OD DAILY 04/04/17 Neurontin 300 mg PO TID 04/04/17 Family Disease History - Family Disease History Family History: Unable to Obtain Review of Systems Unable to obtain ROS, reason: pt aphasic Physical Exam Vital Signs: Vital Signs Temperature 97.8 F 04/07/17 08:08 Pulse Rate 60 04/07/17 08:08 Respiratory Rate 18 04/07/17 08:08 Blood Pressure 104/64 04/07/17 08:08 O2 Sat by Pulse Oximetry (%) 98 04/07/17 09:00 Constitutional: Yes: No Distress, Calm HENT: Yes: Atraumatic Neck: Yes: Supple Cardiovascular: Yes: Regular Rate and Rhythm Respiratory: Yes: CTA Bilaterally Gastrointestinal: Yes: Normal Bowel Sounds, Soft Renal/: Yes: Andres Present Extremities: Yes: WNL Neurological: Yes: Aphasia, Other (Lt hemipharesis) Psychiatric: Yes: Alert Labs: CBC, BMP 04/07/17 06:20 04/07/17 06:20 Microbiology 04/04/17 19:05 Urine - Urine - Catheterized Urine Culture - Final Klebsiella Pneumoniae - Esbl 04/04/17 19:00 Blood - Peripheral Venous Blood Culture - Final Bacillus Species, Not Antracis 04/04/17 19:05 Blood - Peripheral Venous Blood Culture - Preliminary NO GROWTH OBTAINED AFTER 48 HOURS, INCUBATION TO CONTINUE FOR 3 DAYS. Problem List - Problems (1) Acute renal failure Code(s): N17.9 - ACUTE KIDNEY FAILURE, UNSPECIFIED (2) Atrial fibrillation Code(s): I48.91 - UNSPECIFIED ATRIAL FIBRILLATION (3) BPH (benign prostatic hyperplasia) Code(s): N40.0 - BENIGN PROSTATIC HYPERPLASIA WITHOUT LOWER URINRY TRACT SYMP (4) CKD (chronic kidney disease) Code(s): N18.9 - CHRONIC KIDNEY DISEASE, UNSPECIFIED (5) CVA (cerebral vascular accident) Code(s): I63.9 - CEREBRAL INFARCTION, UNSPECIFIED (6) Diabetes Code(s): E11.9 - TYPE 2 DIABETES MELLITUS WITHOUT COMPLICATIONS (7) HTN (hypertension) Code(s): I10 - ESSENTIAL (PRIMARY) HYPERTENSION (8) Hyperkalemia Code(s): E87.5 - HYPERKALEMIA (9) UTI (urinary tract infection) Code(s): N39.0 - URINARY TRACT INFECTION, SITE NOT SPECIFIED Assessment/Plan Pt with CVA, DM, BPH, HTN, AFIB, obstructive uropathy with indwelling andres, s/ p PPM admitted with hyperkalemia, elevated creatinine, leukocytosis ESBL + Klebsiella UTI BRAD on CKD - d/c ceftriaxone, start Ertapenem IV - repeat blood cultures - monitor wbc, renal function,vitals - urology following - pt currently appears stable
--- NOTE | 2017-04-07 17:07 | CONS ---
DATE OF CONSULTATION: HISTORY: The patient is a 71-year-old male seen in my office on March with urinary retention and a Terry catheter. The patient recently arrived from [facility] where he developed acute urinary retention. He was told that he had an impacted stone in his mid urethra. With difficulty, a Terry catheter was placed and connected to a leg bag. The patient arrived last night from [facility]. He also has history of a CVA, atrial fibrillation, high blood pressure, diabetes, several prostatism. Blood workup performed revealed a potassium of 6.2. Therefore, the patient was called and told to go to the emergency room. He basically is nonvocal due to apraxia. He does have history of atrial fibrillation, hypertension, chronic renal insufficiency, diabetes, and prostate enlargement. He has undergone a pacemaker insertion. He denies smoking. ALLERGIES: He denies any allergies. MEDICATIONS: He was on metoprolol, Benicar with hydrochlorothiazide, and Eliquis. FAMILY HISTORY: He denies any significant family history. In the emergency room, his white count was 11.5, hemoglobin 10.5, hematocrit 31.7. Random glucose was 33, platelets 292, BUN 17, creatinine 1.8. Presently, the patient is afebrile. His Terry is patent. His urine is clear. Pathology came back urine positive for Klebsiella pneumoniae, ESBL. Blood cultures came back Bacillus not anthracis. The latest vital signs revealed a white count 11,000. The patient is presently afebrile. Patient also underwent a renal ultrasound, which is pending. PLAN: Continue IV antibiotics as per Infectious Disease. The patient is known to have a bladder stone. Will continue with Terry to drainage bag. The patient will be urologically treated as an outpatient including a cystoscopy, cystoscopic laser lithotripsy, and a possible vaporization of the prostate gland. We will follow with you. Rafael [id number]
--- NOTE | 2017-04-07 18:58 | PN ---
Progress Note, Physician History of Present Illness: No new complaints - Current Medication List Current Medications: Active Medications Apixaban (Eliquis -) 5 mg PO BID [facility] Last Admin: 04/07/17 09:19 Dose: 5 mg Brimonidine Tartrate (Alphagan P 0.1% -) 1 drop OS TID [facility] Last Admin: 04/07/17 15:00 Dose: 1 drop Gabapentin (Neurontin -) 300 mg PO TID [facility] Last Admin: 04/07/17 14:05 Dose: 300 mg Hydrochlorothiazide (Hctz -) 12.5 mg PO DAILY [facility] Last Admin: 04/07/17 09:19 Dose: 12.5 mg Ertapenem 1 gm/ Sodium (Chloride) 50 mls @ 100 mls/hr IVPB DAILY [facility] Latanoprost (Xalatan 0.005% Eye Drops -) 1 drop OD DAILY [facility] Last Admin: 04/07/17 09:27 Dose: 1 drop Metoprolol Succinate (Toprol Xl -) 50 mg PO DAILY [facility] Last Admin: 04/07/17 09:19 Dose: 50 mg Tamsulosin HCl (Flomax -) 0.4 mg PO DAILY@0830 [facility] Last Admin: 04/07/17 09:19 Dose: 0.4 mg Valsartan (Diovan -) 80 mg PO DAILY [facility] - Objective Vital Signs: Vital Signs Temperature 98.4 F 04/07/17 18:06 Pulse Rate 60 04/07/17 18:06 Respiratory Rate 18 04/07/17 18:06 Blood Pressure 103/53 04/07/17 18:06 O2 Sat by Pulse Oximetry (%) 98 04/07/17 09:00 Constitutional: Yes: No Distress HENT: Yes: WNL Neck: Yes: WNL, Supple Cardiovascular: Yes: WNL, Regular Rate and Rhythm Respiratory: Yes: WNL, Regular, CTA Bilaterally Gastrointestinal: Yes: WNL, Normal Bowel Sounds, Soft Labs: CBC, BMP 04/07/17 06:20 04/07/17 06:20 INR, PTT INR 1.63 (0.82-1.09) H D 04/04/17 13:00 Problem List - Problems (1) Bacteremia Assessment/Plan: Blood culture (+) for bacillus species Urine cutlure showed klebsiella/ESBL Cont IV ivanz ID consult noted Code(s): R78.81 - BACTEREMIA (2) Acute renal failure Assessment/Plan: Gently IV hydration Renal consult/uro noted Pt has h/o BPH Pt to have further w/u for bladder stone as outpt as per uro Code(s): N17.9 - ACUTE KIDNEY FAILURE, UNSPECIFIED (3) Atrial fibrillation Assessment/Plan: Heart rate controlled Cont eliquis Code(s): I48.91 - UNSPECIFIED ATRIAL FIBRILLATION (4) BPH (benign prostatic hyperplasia) Assessment/Plan: Cont flomax Code(s): N40.0 - BENIGN PROSTATIC HYPERPLASIA WITHOUT LOWER URINRY TRACT SYMP (5) CVA (cerebral vascular accident) Code(s): I63.9 - CEREBRAL INFARCTION, UNSPECIFIED (6) Diabetes Assessment/Plan: ?Pt not on any meds HgA1c is normal Code(s): E11.9 - TYPE 2 DIABETES MELLITUS WITHOUT COMPLICATIONS (7) HTN (hypertension) Code(s): I10 - ESSENTIAL (PRIMARY) HYPERTENSION (8) Hyperkalemia Code(s): E87.5 - HYPERKALEMIA
[2017-04-08] MEDS: BRIMONIDINE TARTRATE 0.1% OPHTHALMIC 5 ML BOTTLE OS SCH ×3 (06:33→21:42)
[2017-04-08] MEDS: GABAPENTIN 300 MG CAPSULE (FP) PO SCH ×3 (06:33→21:43)
[2017-04-08 07:47] LABS: BASO % 0.7 % (0-2.0); EOS % 2.9 % (0-4.5); HEMATOCRIT 34.2 % (35.4-49); HEMOGLOBIN 11.6 GM/dL (11.7-16.9); LYMPH % 28.5 % (8-40); MCH 32.5 pg (25.7-33.7); MCHC 33.9 g/dl (32.0-35.9); MEAN CELL VOLUME 95.9 fl (80-96); MEAN PLT VOLUME 8.2 fl (7.5-11.1); MONO % 5.5 % (3.8-10.2); NEUT % 62.4 % (42.8-82.8); PLATELET COUNT 329 K/MM3 (134-434); RBC 3.56 M/mm3 (4.00-5.60); RDW 13.2 % (11.9-15.9); WHITE BLOOD COUNT 9.5 K/mm3 (4.0-10.0)
[2017-04-08 08:21] LABS: ALBUMIN 3.1 g/dl (3.4-5.0); ALK PHOS 55 U/L (45-117); ANION GAP 6 (8-16); BILIRUBIN,TOTAL 0.4 mg/dL (0.2-1.0); BLOOD UREA NITROGEN 25 mg/dL (7-18); CALCIUM 8.2 mg/dL (8.5-10.1); CHLORIDE 102 mmol/L (98-107); CO2 29 mmol/L (21-32); CREATININE 1.3 mg/dL (0.7-1.3); GLUCOSE,RANDOM 98 mg/dL (74-106); POTASSIUM 4.4 mmol/L (3.5-5.1); SGOT/AST 14 U/L (15-37); SGPT/ALT 26 U/L (12-78); SODIUM 137 mmol/L (136-145); TOT PROT 7.2 g/dl (6.4-8.2)
[2017-04-08] MEDS: TAMSULOSIN HCL 0.4 MG CAP.ER.24H (FP) PO SCH (08:21)
[2017-04-08] MEDS: APIXABAN 5 MG TABLET PO SCH ×2 (09:51→21:43)
[2017-04-08] MEDS: ERTAPENEM SODIUM 1 GM in SODIUM CHLORIDE 50 ML IVPB SCH (09:52)
[2017-04-08] MEDS: LATANOPROST 0.005% OPHTH SOLN 2.5ML BOTTLE OD SCH (09:53)
[2017-04-08] MEDS: HYDROCHLOROTHIAZIDE 12.5 MG CAPSULE (FP) PO SCH (09:57)
[2017-04-08] MEDS: VALSARTAN 80 MG TABLET (UD) PO SCH (09:57)
--- NOTE | 2017-04-08 14:05 | PN ---
Progress Note, Physician History of Present Illness: Pt is alert, without distress. No new events. at bedside. - Current Medication List Current Medications: Active Medications Apixaban (Eliquis -) 5 mg PO BID [facility] Last Admin: 04/08/17 09:51 Dose: 5 mg Brimonidine Tartrate (Alphagan P 0.1% -) 1 drop OS TID [facility] Last Admin: 04/08/17 06:33 Dose: 1 drop Gabapentin (Neurontin -) 300 mg PO TID [facility] Last Admin: 04/08/17 06:33 Dose: 300 mg Hydrochlorothiazide (Hctz -) 12.5 mg PO DAILY [facility] Last Admin: 04/08/17 09:57 Dose: 12.5 mg Ertapenem 1 gm/ Sodium (Chloride) 50 mls @ 100 mls/hr IVPB DAILY [facility] Last Admin: 04/08/17 09:52 Dose: 100 mls/hr Latanoprost (Xalatan 0.005% Eye Drops -) 1 drop OD DAILY [facility] Last Admin: 04/08/17 09:53 Dose: 1 drop Metoprolol Succinate (Toprol Xl -) 50 mg PO DAILY [facility] Last Admin: 04/08/17 09:57 Dose: 50 mg Tamsulosin HCl (Flomax -) 0.4 mg PO DAILY@0830 [facility] Last Admin: 04/08/17 08:21 Dose: 0.4 mg Valsartan (Diovan -) 80 mg PO DAILY [facility] Last Admin: 04/08/17 09:57 Dose: 80 mg - Objective Vital Signs: Vital Signs Temperature 98 F 04/08/17 13:55 Pulse Rate 60 04/08/17 13:55 Respiratory Rate 20 04/08/17 13:55 Blood Pressure 104/62 04/08/17 13:55 O2 Sat by Pulse Oximetry (%) 97 04/07/17 21:00 Constitutional: Yes: No Distress, Calm Neck: Yes: Supple Cardiovascular: Yes: Regular Rate and Rhythm Respiratory: Yes: CTA Bilaterally Gastrointestinal: Yes: Normal Bowel Sounds, Soft Genitourinary: Yes: Andres Present Musculoskeletal: Yes: WNL Extremities: Yes: WNL Neurological: Yes: Alert, Aphasia Labs: CBC, BMP 04/08/17 06:00 04/08/17 06:00 INR, PTT INR 1.63 (0.82-1.09) H D 04/04/17 13:00 Microbiology 04/07/17 13:33 Blood - Peripheral Venous Blood Culture - Preliminary NO GROWTH OBTAINED AFTER 24 HOURS, INCUBATION TO CONTINUE FOR 4 DAYS. 04/07/17 13:33 Blood - Peripheral Venous Blood Culture - Preliminary NO GROWTH OBTAINED AFTER 24 HOURS, INCUBATION TO CONTINUE FOR 4 DAYS. 04/04/17 19:05 Blood - Peripheral Venous Blood Culture - Preliminary NO GROWTH OBTAINED AFTER 72 HOURS, INCUBATION TO CONTINUE FOR 2 DAYS. 04/04/17 19:05 Urine - Urine - Catheterized Urine Culture - Final Klebsiella Pneumoniae - Esbl 04/04/17 19:00 Blood - Peripheral Venous Blood Culture - Final Bacillus Species, Not Antracis - ....Imaging Ultrasound: Report Reviewed (Renal US - no abnormal findings) Problem List - Problems (1) Acute renal failure Code(s): N17.9 - ACUTE KIDNEY FAILURE, UNSPECIFIED (2) Atrial fibrillation Code(s): I48.91 - UNSPECIFIED ATRIAL FIBRILLATION (3) BPH (benign prostatic hyperplasia) Code(s): N40.0 - BENIGN PROSTATIC HYPERPLASIA WITHOUT LOWER URINRY TRACT SYMP (4) CKD (chronic kidney disease) Code(s): N18.9 - CHRONIC KIDNEY DISEASE, UNSPECIFIED (5) CVA (cerebral vascular accident) Code(s): I63.9 - CEREBRAL INFARCTION, UNSPECIFIED (6) Diabetes Code(s): E11.9 - TYPE 2 DIABETES MELLITUS WITHOUT COMPLICATIONS (7) HTN (hypertension) Code(s): I10 - ESSENTIAL (PRIMARY) HYPERTENSION (8) Hyperkalemia Code(s): E87.5 - HYPERKALEMIA (9) UTI (urinary tract infection) Code(s): N39.0 - URINARY TRACT INFECTION, SITE NOT SPECIFIED Assessment/Plan Pt with CVA, DM, BPH, HTN, AFIB, obstructive uropathy with indwelling andres, s/ p PPM admitted with hyperkalemia, elevated creatinine, leukocytosis ESBL + Klebsiella UTI Bacillus Bacteremia BRAD on CKD - improving - continue Ertapenem - repeat blood cultures with no growth - wbc now normal, vitals stable - urology following - pt currently appears stable
--- NOTE | 2017-04-08 15:10 | PN ---
Progress Note, Physician History of Present Illness: Pt seen and examined at bedside. He is awake and alert. He appears comfortable. - Current Medication List Current Medications: Active Medications Apixaban (Eliquis -) 5 mg PO BID [facility] Last Admin: 04/08/17 09:51 Dose: 5 mg Brimonidine Tartrate (Alphagan P 0.1% -) 1 drop OS TID [facility] Last Admin: 04/08/17 14:11 Dose: 1 drop Gabapentin (Neurontin -) 300 mg PO TID [facility] Last Admin: 04/08/17 14:12 Dose: 300 mg Hydrochlorothiazide (Hctz -) 12.5 mg PO DAILY [facility] Last Admin: 04/08/17 09:57 Dose: 12.5 mg Ertapenem 1 gm/ Sodium (Chloride) 50 mls @ 100 mls/hr IVPB DAILY [facility] Last Admin: 04/08/17 09:52 Dose: 100 mls/hr Latanoprost (Xalatan 0.005% Eye Drops -) 1 drop OD DAILY [facility] Last Admin: 04/08/17 09:53 Dose: 1 drop Metoprolol Succinate (Toprol Xl -) 50 mg PO DAILY [facility] Last Admin: 04/08/17 09:57 Dose: 50 mg Tamsulosin HCl (Flomax -) 0.4 mg PO DAILY@0830 [facility] Last Admin: 04/08/17 08:21 Dose: 0.4 mg Valsartan (Diovan -) 80 mg PO DAILY [facility] Last Admin: 04/08/17 09:57 Dose: 80 mg - Objective Vital Signs: Vital Signs Temperature 98 F 04/08/17 13:55 Pulse Rate 60 04/08/17 13:55 Respiratory Rate 20 04/08/17 13:55 Blood Pressure 104/62 04/08/17 13:55 O2 Sat by Pulse Oximetry (%) 97 04/07/17 21:00 Constitutional: Yes: Calm Eyes: Yes: Conjunctiva Clear HENT: Yes: Atraumatic Neck: Yes: Supple Cardiovascular: Yes: S1, S2 Respiratory: Yes: CTA Bilaterally Gastrointestinal: Yes: Soft Genitourinary: Yes: Andres Present Musculoskeletal: Yes: WNL Edema: No Neurological: Yes: Pre-Existing Deficit Labs: CBC, BMP 04/08/17 06:00 04/08/17 06:00 INR, PTT INR 1.63 (0.82-1.09) H D 04/04/17 13:00 Problem List - Problems (1) CKD (chronic kidney disease) Code(s): N18.9 - CHRONIC KIDNEY DISEASE, UNSPECIFIED (2) HTN (hypertension) Code(s): I10 - ESSENTIAL (PRIMARY) HYPERTENSION (3) Atrial fibrillation Code(s): I48.91 - UNSPECIFIED ATRIAL FIBRILLATION (4) CVA (cerebral vascular accident) Code(s): I63.9 - CEREBRAL INFARCTION, UNSPECIFIED (5) Hyperkalemia Code(s): E87.5 - HYPERKALEMIA Assessment/Plan Current Medications Generic Name Dose Route Start Last Admin Trade Name Freq PRN Reason Stop Dose Admin Apixaban 5 mg 04/05/17 10:00 04/08/17 09:51 Eliquis - PO 5 mg BID SUJATHA Administration Brimonidine Tartrate 1 drop 04/05/17 06:00 04/08/17 14:11 Alphagan P 0.1% - OS 1 drop TID SUJATHA Administration Gabapentin 300 mg 04/05/17 06:00 04/08/17 14:12 Neurontin - PO 300 mg TID SUJATHA Administration Hydrochlorothiazide 12.5 mg 04/05/17 10:00 04/08/17 09:57 Hctz - PO 12.5 mg DAILY SUJATHA Administration Ertapenem 1 gm/ Sodium 50 mls @ 100 mls/hr 04/07/17 14:07 04/08/17 09:52 Chloride IVPB 100 mls/hr DAILY SUJATHA Administration Latanoprost 1 drop 04/05/17 10:00 04/08/17 09:53 Xalatan 0.005% Eye Drops - OD 1 drop DAILY SUJATHA Administration Metoprolol Succinate 50 mg 04/05/17 10:00 04/08/17 09:57 Toprol Xl - PO 50 mg DAILY SUJATHA Administration Tamsulosin HCl 0.4 mg 04/05/17 08:30 04/08/17 08:21 Flomax - PO 0.4 mg DAILY@0830 SUJATHA Administration Valsartan 80 mg 04/07/17 12:28 04/08/17 09:57 Diovan - PO 80 mg DAILY SUJATHA Administration Impression 1. hyperkalemia 2. CKD 3. htn 4. a-fib 5. weakness 6. hx CVA 7. urinary obstruction with indwelling andres 8. leukocytosis Plan - renal function is improved - cont abx for UTI - follow cultures - repeat labs in am - cont with giannivan - will complete renal workup in office - low potassium diet - will follow
--- NOTE | 2017-04-08 23:07 | PN ---
Progress Note, Physician History of Present Illness: No new complaints - Current Medication List Current Medications: Active Medications Apixaban (Eliquis -) 5 mg PO BID [facility]S [facility] Last Admin: 04/08/17 21:43 Dose: 5 mg Brimonidine Tartrate (Alphagan P 0.1% -) 1 drop OS TID [facility] 234 B[facility]S [facility] Last Admin: 04/08/17 21:42 Dose: 1 drop Gabapentin (Neurontin -) 300 mg PO TID [facility] 234 B[facility]S [facility] Last Admin: 04/08/17 21:43 Dose: 300 mg Hydrochlorothiazide (Hctz -) 12.5 mg PO DAILY [facility] 234 B[facility]S [facility] Last Admin: 04/08/17 09:57 Dose: 12.5 mg Ertapenem 1 gm/ Sodium (Chloride) 50 mls @ 100 mls/hr IVPB DAILY [facility] 234 B[facility]S AT [facility] Last Admin: 04/08/17 09:52 Dose: 100 mls/hr Latanoprost (Xalatan 0.005% Eye Drops -) 1 drop OD DAILY [facility] 234 B[facility]S [facility] Last Admin: 04/08/17 09:53 Dose: 1 drop Metoprolol Succinate (Toprol Xl -) 50 mg PO DAILY [facility] 234 B[facility]S [facility] Last Admin: 04/08/17 09:57 Dose: 50 mg Tamsulosin HCl (Flomax -) 0.4 mg PO DAILY@0830 [facility] 234 B[facility]S [facility] Last Admin: 04/08/17 08:21 Dose: 0.4 mg Valsartan (Diovan -) 80 mg PO DAILY [facility] 234 BEDS [facility] Last Admin: 04/08/17 09:57 Dose: 80 mg - Objective Vital Signs: Vital Signs Temperature 98.5 F 04/08/17 20:23 Pulse Rate 60 04/08/17 20:23 Respiratory Rate 20 04/08/17 20:23 Blood Pressure 107/52 04/08/17 20:23 O2 Sat by Pulse Oximetry (%) 99 04/08/17 09:00 Neck: Yes: WNL, Supple Cardiovascular: Yes: WNL, Regular Rate and Rhythm Respiratory: Yes: WNL, Regular, CTA Bilaterally Gastrointestinal: Yes: WNL, Normal Bowel Sounds, Soft Labs: CBC, BMP 04/08/17 06:00 04/08/17 06:00 INR, PTT INR 1.63 (0.82-1.09) H D 04/04/17 13:00 Problem List - Problems (1) Bacteremia Code(s): R78.81 - BACTEREMIA (2) Acute renal failure Code(s): N17.9 - ACUTE KIDNEY FAILURE, UNSPECIFIED (3) Atrial fibrillation Code(s): I48.91 - UNSPECIFIED ATRIAL FIBRILLATION (4) BPH (benign prostatic hyperplasia) Code(s): N40.0 - BENIGN PROSTATIC HYPERPLASIA WITHOUT LOWER URINRY TRACT SYMP (5) CVA (cerebral vascular accident) Code(s): I63.9 - CEREBRAL INFARCTION, UNSPECIFIED (6) Diabetes Code(s): E11.9 - TYPE 2 DIABETES MELLITUS WITHOUT COMPLICATIONS (7) HTN (hypertension) Code(s): I10 - ESSENTIAL (PRIMARY) HYPERTENSION (8) Hyperkalemia Code(s): E87.5 - HYPERKALEMIA
[2017-04-09] MEDS: GABAPENTIN 300 MG CAPSULE (FP) PO SCH ×3 (06:21→21:37)
[2017-04-09] MEDS: BRIMONIDINE TARTRATE 0.1% OPHTHALMIC 5 ML BOTTLE OS SCH ×3 (06:23→21:38)
[2017-04-09 08:26] LABS: ANION GAP 6 (8-16); BLOOD UREA NITROGEN 21 mg/dL (7-18); CHLORIDE 103 mmol/L (98-107); CO2 29 mmol/L (21-32); CREATININE 1.2 mg/dL (0.7-1.3); GLUCOSE,RANDOM 99 mg/dL (74-106); POTASSIUM 4.7 mmol/L (3.5-5.1); SODIUM 138 mmol/L (136-145)
[2017-04-09] MEDS: TAMSULOSIN HCL 0.4 MG CAP.ER.24H (FP) PO SCH (09:30)
[2017-04-09] MEDS: LATANOPROST 0.005% OPHTH SOLN 2.5ML BOTTLE OD SCH (09:55)
[2017-04-09] MEDS: ERTAPENEM SODIUM 1 GM in SODIUM CHLORIDE 50 ML IVPB SCH (09:55)
[2017-04-09] MEDS: APIXABAN 5 MG TABLET PO SCH ×2 (09:55→21:38)
[2017-04-09] MEDS: HYDROCHLOROTHIAZIDE 12.5 MG CAPSULE (FP) PO SCH (09:55)
[2017-04-09] MEDS: VALSARTAN 80 MG TABLET (UD) PO SCH (09:56)
--- NOTE | 2017-04-09 13:40 | PN ---
Progress Note, Physician History of Present Illness: Pt seen and examined at bedside. He appears comfortable. - Current Medication List Current Medications: Active Medications Apixaban (Eliquis -) 5 mg PO BID [facility] Last Admin: 04/09/17 09:55 Dose: 5 mg Brimonidine Tartrate (Alphagan P 0.1% -) 1 drop OS TID [facility] Last Admin: 04/09/17 06:23 Dose: 1 drop Gabapentin (Neurontin -) 300 mg PO TID [facility] Last Admin: 04/09/17 06:21 Dose: 300 mg Hydrochlorothiazide (Hctz -) 12.5 mg PO DAILY [facility] Last Admin: 04/09/17 09:55 Dose: Not Given Ertapenem 1 gm/ Sodium (Chloride) 50 mls @ 100 mls/hr IVPB DAILY [facility] Last Admin: 04/09/17 09:55 Dose: 100 mls/hr Latanoprost (Xalatan 0.005% Eye Drops -) 1 drop OD DAILY [facility] Last Admin: 04/09/17 09:55 Dose: 1 drop Metoprolol Succinate (Toprol Xl -) 50 mg PO DAILY [facility] Last Admin: 04/09/17 09:55 Dose: Not Given Tamsulosin HCl (Flomax -) 0.4 mg PO DAILY@0830 [facility] Last Admin: 04/09/17 09:30 Dose: 0.4 mg Valsartan (Diovan -) 80 mg PO DAILY [facility] Last Admin: 04/09/17 09:56 Dose: Not Given - Objective Vital Signs: Vital Signs Temperature 98.2 F 04/09/17 10:06 Pulse Rate 60 04/09/17 10:06 Respiratory Rate 16 04/09/17 10:06 Blood Pressure 101/55 04/09/17 10:06 O2 Sat by Pulse Oximetry (%) 98 04/09/17 09:00 Constitutional: Yes: Calm Eyes: Yes: Conjunctiva Clear HENT: Yes: Atraumatic Neck: Yes: Supple Cardiovascular: Yes: S1, S2 Respiratory: Yes: CTA Bilaterally Gastrointestinal: Yes: Soft Genitourinary: Yes: Andres Present Edema: No Neurological: Yes: Pre-Existing Deficit Labs: CBC, BMP 04/08/17 06:00 04/09/17 06:00 INR, PTT INR 1.63 (0.82-1.09) H D 04/04/17 13:00 Problem List - Problems (1) CKD (chronic kidney disease) Code(s): N18.9 - CHRONIC KIDNEY DISEASE, UNSPECIFIED (2) HTN (hypertension) Code(s): I10 - ESSENTIAL (PRIMARY) HYPERTENSION (3) Atrial fibrillation Code(s): I48.91 - UNSPECIFIED ATRIAL FIBRILLATION (4) CVA (cerebral vascular accident) Code(s): I63.9 - CEREBRAL INFARCTION, UNSPECIFIED (5) Hyperkalemia Code(s): E87.5 - HYPERKALEMIA Assessment/Plan Current Medications Generic Name Dose Route Start Last Admin Trade Name Freq PRN Reason Stop Dose Admin Apixaban 5 mg 04/05/17 10:00 04/09/17 09:55 Eliquis - PO 5 mg BID SUJATHA Administration Brimonidine Tartrate 1 drop 04/05/17 06:00 04/09/17 06:23 Alphagan P 0.1% - OS 1 drop TID SUJATHA Administration Gabapentin 300 mg 04/05/17 06:00 04/09/17 06:21 Neurontin - PO 300 mg TID SUJATHA Administration Hydrochlorothiazide 12.5 mg 04/05/17 10:00 04/09/17 09:55 Hctz - PO Not Given DAILY [facility] Ertapenem 1 gm/ Sodium 50 mls @ 100 mls/hr 04/07/17 14:07 04/09/17 09:55 Chloride IVPB 100 mls/hr DAILY SUJATHA Administration Latanoprost 1 drop 04/05/17 10:00 04/09/17 09:55 Xalatan 0.005% Eye Drops - OD 1 drop DAILY SUJATHA Administration Metoprolol Succinate 50 mg 04/05/17 10:00 04/09/17 09:55 Toprol Xl - PO Not Given DAILY SUJATHA Tamsulosin HCl 0.4 mg 04/05/17 08:30 04/09/17 09:30 Flomax - PO 0.4 mg DAILY@0830 SUJATHA Administration Valsartan 80 mg 04/07/17 12:28 04/09/17 09:56 Diovan - PO Not Given DAILY SUJATHA Impression 1. hyperkalemia 2. CKD 3. htn 4. a-fib 5. weakness 6. hx CVA 7. urinary obstruction with indwelling andres 8. leukocytosis Plan - hold hctz as bp is low - renal function is stabilizing - monitor potassium level - cont abx for UTI - cont with diovan - will complete renal workup in office - low potassium diet - will follow
--- NOTE | 2017-04-09 13:45 | PN ---
Progress Note, Physician History of Present Illness: Pt doing well. No acute distress, afebrile. - Current Medication List Current Medications: Active Medications Apixaban (Eliquis -) 5 mg PO BID [facility] Last Admin: 04/09/17 09:55 Dose: 5 mg Brimonidine Tartrate (Alphagan P 0.1% -) 1 drop OS TID [facility] Last Admin: 04/09/17 06:23 Dose: 1 drop Gabapentin (Neurontin -) 300 mg PO TID [facility] Last Admin: 04/09/17 06:21 Dose: 300 mg Ertapenem 1 gm/ Sodium (Chloride) 50 mls @ 100 mls/hr IVPB DAILY [facility] Last Admin: 04/09/17 09:55 Dose: 100 mls/hr Latanoprost (Xalatan 0.005% Eye Drops -) 1 drop OD DAILY [facility] Last Admin: 04/09/17 09:55 Dose: 1 drop Metoprolol Succinate (Toprol Xl -) 50 mg PO DAILY [facility] Last Admin: 04/09/17 09:55 Dose: Not Given Tamsulosin HCl (Flomax -) 0.4 mg PO DAILY@0830 [facility] Last Admin: 04/09/17 09:30 Dose: 0.4 mg Valsartan (Diovan -) 80 mg PO DAILY [facility] Last Admin: 04/09/17 09:56 Dose: Not Given - Objective Vital Signs: Vital Signs Temperature 98.2 F 04/09/17 10:06 Pulse Rate 60 04/09/17 10:06 Respiratory Rate 16 04/09/17 10:06 Blood Pressure 101/55 04/09/17 10:06 O2 Sat by Pulse Oximetry (%) 98 04/09/17 09:00 Constitutional: Yes: No Distress Cardiovascular: Yes: Regular Rate and Rhythm Respiratory: Yes: CTA Bilaterally Gastrointestinal: Yes: Normal Bowel Sounds, Soft Genitourinary: Yes: Andres Present Neurological: Yes: Aphasia Labs: CBC, BMP 04/08/17 06:00 04/09/17 06:00 INR, PTT INR 1.63 (0.82-1.09) H D 04/04/17 13:00 Problem List - Problems (1) Acute renal failure Code(s): N17.9 - ACUTE KIDNEY FAILURE, UNSPECIFIED (2) Atrial fibrillation Code(s): I48.91 - UNSPECIFIED ATRIAL FIBRILLATION (3) BPH (benign prostatic hyperplasia) Code(s): N40.0 - BENIGN PROSTATIC HYPERPLASIA WITHOUT LOWER URINRY TRACT SYMP (4) CKD (chronic kidney disease) Code(s): N18.9 - CHRONIC KIDNEY DISEASE, UNSPECIFIED (5) CVA (cerebral vascular accident) Code(s): I63.9 - CEREBRAL INFARCTION, UNSPECIFIED (6) Diabetes Code(s): E11.9 - TYPE 2 DIABETES MELLITUS WITHOUT COMPLICATIONS (7) HTN (hypertension) Code(s): I10 - ESSENTIAL (PRIMARY) HYPERTENSION (8) Hyperkalemia Code(s): E87.5 - HYPERKALEMIA (9) UTI (urinary tract infection) Code(s): N39.0 - URINARY TRACT INFECTION, SITE NOT SPECIFIED Assessment/Plan Pt with CVA, DM, BPH, HTN, AFIB, obstructive uropathy with indwelling andres, s/ p PPM admitted with hyperkalemia, elevated creatinine, leukocytosis ESBL + Klebsiella UTI Bacillus isolate in 1 bottle out of set of blood cultures, f/u cultures with no growth BRAD on CKD - improving Leukocytosis - resolved - continue Ertapenem - wbc now normal, vitals stable - urology following - pt currently appears stable
--- NOTE | 2017-04-09 23:39 | PN ---
Progress Note, Physician History of Present Illness: No new complaints - Current Medication List Current Medications: Active Medications Apixaban (Eliquis -) [address] [facility] Last Admin: 04/09/17 21:38 Dose: 5 mg Brimonidine Tartrate (Alphagan P 0.1% -) [address] [facility] Last Admin: 04/09/17 21:38 Dose: 1 drop Gabapentin (Neurontin -) [address] [facility] Last Admin: 04/09/17 21:37 Dose: 300 mg Ertapenem 1 gm/ Sodium (Chloride) 50 mls @ 100 mls/hr IVPB DAILY [facility] Last Admin: 04/09/17 09:55 Dose: 100 mls/hr Latanoprost (Xalatan 0.005% Eye Drops -) [address] [facility] Last Admin: 04/09/17 09:55 Dose: 1 drop Metoprolol Succinate (Toprol Xl -) [address] [facility] Last Admin: 04/09/17 09:55 Dose: Not Given Tamsulosin HCl (Flomax -) 0.4 mg PO DAILY@0830 [facility] Last Admin: 04/09/17 09:30 Dose: 0.4 mg Valsartan (Diovan -) [address] [facility] Last Admin: 04/09/17 09:56 Dose: Not Given - Objective Vital Signs: Vital Signs Temperature 98.1 F 04/09/17 19:09 Pulse Rate 60 04/09/17 19:09 Respiratory Rate 20 04/09/17 19:09 Blood Pressure 103/58 04/09/17 19:09 O2 Sat by Pulse Oximetry (%) 98 04/09/17 09:00 Neck: Yes: WNL, Supple Cardiovascular: Yes: WNL, Regular Rate and Rhythm Respiratory: Yes: WNL, Regular, CTA Bilaterally Gastrointestinal: Yes: WNL, Normal Bowel Sounds, Soft Labs: CBC, BMP 04/08/17 06:00 04/09/17 06:00 INR, PTT INR 1.63 (0.82-1.09) H D 04/04/17 13:00 Problem List - Problems (1) Bacteremia Code(s): R78.81 - BACTEREMIA (2) Acute renal failure Code(s): N17.9 - ACUTE KIDNEY FAILURE, UNSPECIFIED (3) Atrial fibrillation Code(s): I48.91 - UNSPECIFIED ATRIAL FIBRILLATION (4) BPH (benign prostatic hyperplasia) Code(s): N40.0 - BENIGN PROSTATIC HYPERPLASIA WITHOUT LOWER URINRY TRACT SYMP (5) CVA (cerebral vascular accident) Code(s): I63.9 - CEREBRAL INFARCTION, UNSPECIFIED (6) Diabetes Code(s): E11.9 - TYPE 2 DIABETES MELLITUS WITHOUT COMPLICATIONS (7) HTN (hypertension) Code(s): I10 - ESSENTIAL (PRIMARY) HYPERTENSION (8) Hyperkalemia Code(s): E87.5 - HYPERKALEMIA
[2017-04-10] MEDS: BRIMONIDINE TARTRATE 0.1% OPHTHALMIC 5 ML BOTTLE OS SCH ×3 (06:53→22:00)
[2017-04-10] MEDS: GABAPENTIN 300 MG CAPSULE (FP) PO SCH ×3 (06:54→21:59)
[2017-04-10 08:16] LABS: ANION GAP 6 (8-16); BLOOD UREA NITROGEN 21 mg/dL (7-18); CALCIUM 8.6 mg/dL (8.5-10.1); CHLORIDE 104 mmol/L (98-107); CO2 28 mmol/L (21-32); CREATININE 1.1 mg/dL (0.7-1.3); GLUCOSE,RANDOM 101 mg/dL (74-106); POTASSIUM 4.8 mmol/L (3.5-5.1); SODIUM 138 mmol/L (136-145)
[2017-04-10] MEDS: TAMSULOSIN HCL 0.4 MG CAP.ER.24H (FP) PO SCH (09:30)
[2017-04-10] MEDS: ERTAPENEM SODIUM 1 GM in SODIUM CHLORIDE 50 ML IVPB SCH (09:58)
[2017-04-10] MEDS: VALSARTAN 80 MG TABLET (UD) PO SCH (10:00)
[2017-04-10] MEDS: LATANOPROST 0.005% OPHTH SOLN 2.5ML BOTTLE OD SCH (10:00)
[2017-04-10] MEDS: APIXABAN 5 MG TABLET PO SCH ×2 (10:00→22:01)
--- NOTE | 2017-04-10 14:22 | PN ---
Progress Note, Physician History of Present Illness: No new events reported. Pt alert, afebrile. - Current Medication List Current Medications: Active Medications Apixaban (Eliquis -) 5 mg PO BID [facility] Last Admin: 04/10/17 10:00 Dose: 5 mg Brimonidine Tartrate (Alphagan P 0.1% -) 1 drop OS TID [facility] Last Admin: 04/10/17 06:53 Dose: 1 drop Gabapentin (Neurontin -) 300 mg PO TID [facility] Last Admin: 04/10/17 06:54 Dose: 300 mg Ertapenem 1 gm/ Sodium (Chloride) 50 mls @ 100 mls/hr IVPB DAILY [facility] Last Admin: 04/10/17 09:58 Dose: 100 mls/hr Latanoprost (Xalatan 0.005% Eye Drops -) 1 drop OD DAILY [facility] Last Admin: 04/10/17 10:00 Dose: 1 drop Metoprolol Succinate (Toprol Xl -) 50 mg PO DAILY [facility] Last Admin: 04/10/17 10:00 Dose: Not Given Tamsulosin HCl (Flomax -) 0.4 mg PO DAILY@0830 [facility] Last Admin: 04/10/17 09:30 Dose: 0.4 mg Valsartan (Diovan -) 80 mg PO DAILY [facility] Last Admin: 04/10/17 10:00 Dose: Not Given - Objective Vital Signs: Vital Signs Temperature 98.2 F 04/10/17 13:53 Pulse Rate 62 04/10/17 13:53 Respiratory Rate 20 04/10/17 13:53 Blood Pressure 106/62 04/10/17 13:53 O2 Sat by Pulse Oximetry (%) 98 04/10/17 09:00 Constitutional: Yes: No Distress, Calm Cardiovascular: Yes: Regular Rate and Rhythm Respiratory: Yes: CTA Bilaterally Gastrointestinal: Yes: Normal Bowel Sounds, Soft Genitourinary: Yes: Andres Present (draining clear urine) Neurological: Yes: Alert Labs: CBC, BMP 04/08/17 06:00 04/10/17 06:00 INR, PTT INR 1.63 (0.82-1.09) H D 04/04/17 13:00 Microbiology 04/07/17 13:33 Blood - Peripheral Venous Blood Culture - Preliminary NO GROWTH OBTAINED AFTER 72 HOURS, INCUBATION TO CONTINUE FOR 2 DAYS. 04/07/17 13:33 Blood - Peripheral Venous Blood Culture - Preliminary NO GROWTH OBTAINED AFTER 72 HOURS, INCUBATION TO CONTINUE FOR 2 DAYS. 04/04/17 19:05 Blood - Peripheral Venous Blood Culture - Final NO GROWTH AFTER 5 DAYS INCUBATION 04/04/17 19:05 Urine - Urine - Catheterized Urine Culture - Final Klebsiella Pneumoniae - Esbl 04/04/17 19:00 Blood - Peripheral Venous Blood Culture - Final Bacillus Species, Not Antracis Problem List - Problems (1) Acute renal failure Code(s): N17.9 - ACUTE KIDNEY FAILURE, UNSPECIFIED (2) Atrial fibrillation Code(s): I48.91 - UNSPECIFIED ATRIAL FIBRILLATION (3) BPH (benign prostatic hyperplasia) Code(s): N40.0 - BENIGN PROSTATIC HYPERPLASIA WITHOUT LOWER URINRY TRACT SYMP (4) CKD (chronic kidney disease) Code(s): N18.9 - CHRONIC KIDNEY DISEASE, UNSPECIFIED (5) CVA (cerebral vascular accident) Code(s): I63.9 - CEREBRAL INFARCTION, UNSPECIFIED (6) Diabetes Code(s): E11.9 - TYPE 2 DIABETES MELLITUS WITHOUT COMPLICATIONS (7) HTN (hypertension) Code(s): I10 - ESSENTIAL (PRIMARY) HYPERTENSION (8) Hyperkalemia Code(s): E87.5 - HYPERKALEMIA (9) UTI (urinary tract infection) Code(s): N39.0 - URINARY TRACT INFECTION, SITE NOT SPECIFIED Assessment/Plan Pt with CVA, DM, BPH, HTN, AFIB, obstructive uropathy with indwelling andres, s/ p PPM admitted with hyperkalemia, elevated creatinine, leukocytosis ESBL + Klebsiella UTI/ Obstructive uropathy, andres in place Bacillus isolate in 1 bottle out of set of blood cultures, f/u cultures with no growth BRAD on CKD - improving Leukocytosis - resolved - continue Ertapenem for total 14 days - wbc now normal, vitals stable - urology following - pt currently appears stable
--- NOTE | 2017-04-10 16:57 | PN ---
Progress Note, Physician History of Present Illness: Pt seen and examined at bedside. He appears comfortable. - Current Medication List Current Medications: Active Medications Apixaban (Eliquis -) 5 mg PO BID [facility] Last Admin: 04/10/17 10:00 Dose: 5 mg Brimonidine Tartrate (Alphagan P 0.1% -) 1 drop OS TID [facility] Last Admin: 04/10/17 15:00 Dose: 1 drop Gabapentin (Neurontin -) 300 mg PO TID [facility] Last Admin: 04/10/17 15:00 Dose: 300 mg Ertapenem 1 gm/ Sodium (Chloride) 50 mls @ 100 mls/hr IVPB DAILY [facility] Last Admin: 04/10/17 09:58 Dose: 100 mls/hr Latanoprost (Xalatan 0.005% Eye Drops -) 1 drop OD DAILY [facility] Last Admin: 04/10/17 10:00 Dose: 1 drop Metoprolol Succinate (Toprol Xl -) 50 mg PO DAILY [facility] Last Admin: 04/10/17 10:00 Dose: Not Given Tamsulosin HCl (Flomax -) 0.4 mg PO DAILY@0830 [facility] Last Admin: 04/10/17 09:30 Dose: 0.4 mg Valsartan (Diovan -) 80 mg PO DAILY [facility] Last Admin: 04/10/17 10:00 Dose: Not Given - Objective Vital Signs: Vital Signs Temperature 98.2 F 04/10/17 13:53 Pulse Rate 62 04/10/17 13:53 Respiratory Rate 20 04/10/17 13:53 Blood Pressure 106/62 04/10/17 13:53 O2 Sat by Pulse Oximetry (%) 98 04/10/17 09:00 Constitutional: Yes: Calm Eyes: Yes: Conjunctiva Clear HENT: Yes: Atraumatic Cardiovascular: Yes: S1, S2 Respiratory: Yes: CTA Bilaterally Gastrointestinal: Yes: Soft Genitourinary: Yes: Andres Present Musculoskeletal: Yes: Muscle Weakness Edema: No Neurological: Yes: Pre-Existing Deficit Labs: CBC, BMP 04/08/17 06:00 04/10/17 06:00 INR, PTT INR 1.63 (0.82-1.09) H D 04/04/17 13:00 - ....Imaging Ultrasound: Report Reviewed Problem List - Problems (1) CKD (chronic kidney disease) Code(s): N18.9 - CHRONIC KIDNEY DISEASE, UNSPECIFIED (2) HTN (hypertension) Code(s): I10 - ESSENTIAL (PRIMARY) HYPERTENSION (3) Atrial fibrillation Code(s): I48.91 - UNSPECIFIED ATRIAL FIBRILLATION (4) CVA (cerebral vascular accident) Code(s): I63.9 - CEREBRAL INFARCTION, UNSPECIFIED (5) Hyperkalemia Code(s): E87.5 - HYPERKALEMIA Assessment/Plan Current Medications Generic Name Dose Route Start Last Admin Trade Name Shaggy PRN Reason Stop Dose Admin Apixaban 5 mg 04/05/17 10:00 04/10/17 10:00 Eliquis - PO 5 mg BID SUJATHA Administration Brimonidine Tartrate 1 drop 04/05/17 06:00 04/10/17 15:00 Alphagan P 0.1% - OS 1 drop TID SUJATHA Administration Gabapentin 300 mg 04/05/17 06:00 04/10/17 15:00 Neurontin - PO 300 mg TID SUJATHA Administration Ertapenem 1 gm/ Sodium 50 mls @ 100 mls/hr 04/07/17 14:07 04/10/17 09:58 Chloride IVPB 100 mls/hr DAILY SUJATHA Administration Latanoprost 1 drop 04/05/17 10:00 04/10/17 10:00 Xalatan 0.005% Eye Drops - OD 1 drop DAILY SUJATHA Administration Metoprolol Succinate 50 mg 04/05/17 10:00 04/10/17 10:00 Toprol Xl - PO Not Given DAILY SUJATHA Tamsulosin HCl 0.4 mg 04/05/17 08:30 04/10/17 09:30 Flomax - PO 0.4 mg DAILY@0830 SUJATHA Administration Valsartan 80 mg 04/07/17 12:28 04/10/17 10:00 Diovan - PO Not Given DAILY SUJATHA Impression 1. hyperkalemia 2. CKD 3. htn 4. a-fib 5. weakness 6. hx CVA 7. urinary obstruction with indwelling andres 8. leukocytosis Plan - continue to monitor bp - thiazide is on hold - cont diovan and metoprlol for now, may need to decrease dose - monitor potassium level - cont abx for UTI - will complete renal workup in office - will follow
--- NOTE | 2017-04-10 19:58 | PN ---
Progress Note, Physician History of Present Illness: No new complaints - Current Medication List Current Medications: Active Medications Apixaban (Eliquis -) 5 mg PO BID [facility] Last Admin: 04/10/17 10:00 Dose: 5 mg Brimonidine Tartrate (Alphagan P 0.1% -) 1 drop OS TID [facility] Last Admin: 04/10/17 15:00 Dose: 1 drop Gabapentin (Neurontin -) 300 mg PO TID [facility] Last Admin: 04/10/17 15:00 Dose: 300 mg Ertapenem 1 gm/ Sodium (Chloride) 50 mls @ 100 mls/hr IVPB DAILY [facility] Last Admin: 04/10/17 09:58 Dose: 100 mls/hr Latanoprost (Xalatan 0.005% Eye Drops -) 1 drop OD DAILY [facility] Last Admin: 04/10/17 10:00 Dose: 1 drop Metoprolol Succinate (Toprol Xl -) 50 mg PO DAILY [facility] Last Admin: 04/10/17 10:00 Dose: Not Given Tamsulosin HCl (Flomax -) 0.4 mg PO DAILY@0830 [facility] Last Admin: 04/10/17 09:30 Dose: 0.4 mg Valsartan (Diovan -) 80 mg PO DAILY [facility] Last Admin: 04/10/17 10:00 Dose: Not Given - Objective Vital Signs: Vital Signs Temperature 98.2 F 04/10/17 13:53 Pulse Rate 62 04/10/17 13:53 Respiratory Rate 20 04/10/17 13:53 Blood Pressure 106/62 04/10/17 13:53 O2 Sat by Pulse Oximetry (%) 98 04/10/17 09:00 Constitutional: Yes: No Distress HENT: Yes: WNL Neck: Yes: WNL, Supple Cardiovascular: Yes: WNL, Regular Rate and Rhythm Respiratory: Yes: WNL, Regular, CTA Bilaterally Gastrointestinal: Yes: WNL, Normal Bowel Sounds, Soft Labs: CBC, BMP 04/08/17 06:00 04/10/17 06:00 INR, PTT INR 1.63 (0.82-1.09) H D 04/04/17 13:00 Problem List - Problems (1) Bacteremia Assessment/Plan: Blood culture (+) for bacillus species Urine cutlure showed klebsiella/ESBL Cont IV Ivanz Repeat BC remain negative PICC line placement in am DC planning to STR Code(s): R78.81 - BACTEREMIA (2) Acute renal failure Assessment/Plan: Improved Code(s): N17.9 - ACUTE KIDNEY FAILURE, UNSPECIFIED (3) Atrial fibrillation Assessment/Plan: Heart rate controlled Cont eliquis Code(s): I48.91 - UNSPECIFIED ATRIAL FIBRILLATION (4) BPH (benign prostatic hyperplasia) Assessment/Plan: Cont flomax Code(s): N40.0 - BENIGN PROSTATIC HYPERPLASIA WITHOUT LOWER URINRY TRACT SYMP (5) CVA (cerebral vascular accident) Code(s): I63.9 - CEREBRAL INFARCTION, UNSPECIFIED (6) Diabetes Code(s): E11.9 - TYPE 2 DIABETES MELLITUS WITHOUT COMPLICATIONS (7) HTN (hypertension) Code(s): I10 - ESSENTIAL (PRIMARY) HYPERTENSION (8) Hyperkalemia Code(s): E87.5 - HYPERKALEMIA
[2017-04-11] MEDS: GABAPENTIN 300 MG CAPSULE (FP) PO SCH ×2 (07:03→14:53)
[2017-04-11] MEDS: BRIMONIDINE TARTRATE 0.1% OPHTHALMIC 5 ML BOTTLE OS SCH ×2 (07:03→14:53)
[2017-04-11 07:09] VITALS: PULSE 60
[2017-04-11 08:08] LABS: BASO % 0.8 % (0-2.0); EOS % 2.6 % (0-4.5); HEMATOCRIT 33.6 % (35.4-49); HEMOGLOBIN 11.4 GM/dL (11.7-16.9); LYMPH % 23.8 % (8-40); MCH 32.1 pg (25.7-33.7); MEAN CELL VOLUME 94.6 fl (80-96); MEAN PLT VOLUME 8.5 fl (7.5-11.1); MONO % 5.8 % (3.8-10.2); PLATELET COUNT 329 K/MM3 (134-434); RBC 3.55 M/mm3 (4.00-5.60); RDW 13.5 % (11.9-15.9); WHITE BLOOD COUNT 8.8 K/mm3 (4.0-10.0)
[2017-04-11 08:19] LABS: ALBUMIN 3.1 g/dl (3.4-5.0); ANION GAP 9 (8-16); BILIRUBIN,TOTAL 0.5 mg/dL (0.2-1.0); BLOOD UREA NITROGEN 16 mg/dL (7-18); CALCIUM 8.3 mg/dL (8.5-10.1); CHLORIDE 104 mmol/L (98-107); CO2 25 mmol/L (21-32); CREATININE 0.9 mg/dL (0.7-1.3); GLUCOSE,RANDOM 83 mg/dL (74-106); POTASSIUM 4.5 mmol/L (3.5-5.1); SGOT/AST 17 U/L (15-37); SGPT/ALT 24 U/L (12-78); SODIUM 138 mmol/L (136-145); TOT PROT 6.9 g/dl (6.4-8.2)
[2017-04-11 08:20] LABS: ALK PHOS 53 U/L (45-117)
[2017-04-11] MEDS ORDERED: PICC LINE 8 ML FLUSH PROTOCOL IVPUSH PRN (08:53)
[2017-04-11] MEDS ORDERED: PT OWN MED DRAWER 7, Y5N ONE (08:54)
[2017-04-11] MEDS: TAMSULOSIN HCL 0.4 MG CAP.ER.24H (FP) PO SCH (09:04)
[2017-04-11] MEDS: LATANOPROST 0.005% OPHTH SOLN 2.5ML BOTTLE OD SCH (09:04)
[2017-04-11] MEDS: APIXABAN 5 MG TABLET PO SCH (09:05)
[2017-04-11] MEDS: VALSARTAN 80 MG TABLET (UD) PO SCH (11:06)
[2017-04-11] MEDS: ERTAPENEM SODIUM 1 GM in SODIUM CHLORIDE 50 ML IVPB SCH (12:55)
--- NOTE | 2017-04-11 13:45 | PN ---
Progress Note, Physician History of Present Illness: Pt afebrile, alert, no distress. states he is looking much better. No new complaints. Tolerating antibiotics. - Current Medication List Current Medications: Active Medications Apixaban (Eliquis -) 5 mg PO BID [facility] Last Admin: 04/11/17 09:05 Dose: 5 mg Brimonidine Tartrate (Alphagan P 0.1% -) 1 drop OS TID [facility] Last Admin: 04/11/17 07:03 Dose: 1 drop Gabapentin (Neurontin -) 300 mg PO TID [facility] Last Admin: 04/11/17 07:03 Dose: 300 mg IV Flush (Picc Line Flush) 8 ml IVPUSH PRN PRN PRN Reason: Protocol Ertapenem 1 gm/ Sodium (Chloride) 50 mls @ 100 mls/hr IVPB DAILY [facility] Last Admin: 04/11/17 12:55 Dose: 100 mls/hr Latanoprost (Xalatan 0.005% Eye Drops -) 1 drop OD DAILY [facility] Last Admin: 04/11/17 09:04 Dose: 1 drop Metoprolol Succinate (Toprol Xl -) 50 mg PO DAILY [facility] Last Admin: 04/11/17 09:08 Dose: 50 mg Tamsulosin HCl (Flomax -) 0.4 mg PO DAILY@0830 [facility] Last Admin: 04/11/17 09:04 Dose: 0.4 mg Valsartan (Diovan -) 80 mg PO DAILY [facility] Last Admin: 04/11/17 11:06 Dose: Not Given - Objective Vital Signs: Vital Signs Temperature 98.1 F 04/11/17 09:00 Pulse Rate 60 04/11/17 09:00 Respiratory Rate 20 04/11/17 09:00 Blood Pressure 113/66 04/11/17 09:00 O2 Sat by Pulse Oximetry (%) 98 04/11/17 09:00 Constitutional: Yes: No Distress, Calm Neck: Yes: Supple Cardiovascular: Yes: Regular Rate and Rhythm Respiratory: Yes: CTA Bilaterally Gastrointestinal: Yes: Normal Bowel Sounds, Soft Genitourinary: Yes: Andres Present Integumentary: Yes: WNL Neurological: Yes: Alert Labs: CBC, BMP 04/11/17 06:30 04/11/17 06:30 INR, PTT INR 1.63 (0.82-1.09) H D 04/04/17 13:00 Problem List - Problems (1) Acute renal failure Code(s): N17.9 - ACUTE KIDNEY FAILURE, UNSPECIFIED (2) Atrial fibrillation Code(s): I48.91 - UNSPECIFIED ATRIAL FIBRILLATION (3) BPH (benign prostatic hyperplasia) Code(s): N40.0 - BENIGN PROSTATIC HYPERPLASIA WITHOUT LOWER URINRY TRACT SYMP (4) CKD (chronic kidney disease) Code(s): N18.9 - CHRONIC KIDNEY DISEASE, UNSPECIFIED (5) CVA (cerebral vascular accident) Code(s): I63.9 - CEREBRAL INFARCTION, UNSPECIFIED (6) Diabetes Code(s): E11.9 - TYPE 2 DIABETES MELLITUS WITHOUT COMPLICATIONS (7) HTN (hypertension) Code(s): I10 - ESSENTIAL (PRIMARY) HYPERTENSION (8) Hyperkalemia Code(s): E87.5 - HYPERKALEMIA (9) UTI (urinary tract infection) Code(s): N39.0 - URINARY TRACT INFECTION, SITE NOT SPECIFIED Assessment/Plan Pt with CVA, DM, BPH, HTN, AFIB, obstructive uropathy with indwelling andres, s/ p PPM admitted with hyperkalemia, elevated creatinine, leukocytosis ESBL + Klebsiella UTI/ Obstructive uropathy Bacillus isolate in 1 bottle out of set of blood cultures, f/u cultures with no growth BRAD on CKD - improving Leukocytosis - resolved - continue Ertapenem for total 14 days (ends 04/21/17) - urology following - pt currently appears stable for possible d/c home with PICC
--- NOTE | 2017-04-11 15:28 | PN ---
Progress Note, Physician History of Present Illness: Pt seen and examined at bedside. He is awake and appears comfortable. - Current Medication List Current Medications: Active Medications Apixaban (Eliquis -) 5 mg PO BID [facility] Last Admin: 04/11/17 09:05 Dose: 5 mg Brimonidine Tartrate (Alphagan P 0.1% -) 1 drop OS TID [facility] Last Admin: 04/11/17 14:53 Dose: 1 drop Gabapentin (Neurontin -) 300 mg PO TID [facility] Last Admin: 04/11/17 14:53 Dose: 300 mg IV Flush (Picc Line Flush) 8 ml IVPUSH PRN PRN PRN Reason: Protocol Latanoprost (Xalatan 0.005% Eye Drops -) 1 drop OD DAILY [facility] Last Admin: 04/11/17 09:04 Dose: 1 drop Metoprolol Succinate (Toprol Xl -) 50 mg PO DAILY [facility] Last Admin: 04/11/17 09:08 Dose: 50 mg Tamsulosin HCl (Flomax -) 0.4 mg PO DAILY@0830 [facility] Last Admin: 04/11/17 09:04 Dose: 0.4 mg Valsartan (Diovan -) 80 mg PO DAILY [facility] Last Admin: 04/11/17 11:06 Dose: Not Given - Objective Vital Signs: Vital Signs Temperature 98.1 F 04/11/17 09:00 Pulse Rate 60 04/11/17 09:00 Respiratory Rate 20 04/11/17 09:00 Blood Pressure 113/66 04/11/17 09:00 O2 Sat by Pulse Oximetry (%) 98 04/11/17 09:00 Constitutional: Yes: Calm Eyes: Yes: Conjunctiva Clear HENT: Yes: Atraumatic Neck: Yes: Supple Cardiovascular: Yes: S1, S2 Respiratory: Yes: CTA Bilaterally Gastrointestinal: Yes: Soft Genitourinary: Yes: Andres Present Musculoskeletal: Yes: WNL Edema: No Neurological: Yes: Pre-Existing Deficit Labs: CBC, BMP 04/11/17 06:30 04/11/17 06:30 INR, PTT INR 1.63 (0.82-1.09) H D 04/04/17 13:00 Problem List - Problems (1) CKD (chronic kidney disease) Code(s): N18.9 - CHRONIC KIDNEY DISEASE, UNSPECIFIED (2) HTN (hypertension) Code(s): I10 - ESSENTIAL (PRIMARY) HYPERTENSION (3) Atrial fibrillation Code(s): I48.91 - UNSPECIFIED ATRIAL FIBRILLATION (4) CVA (cerebral vascular accident) Code(s): I63.9 - CEREBRAL INFARCTION, UNSPECIFIED (5) Hyperkalemia Code(s): E87.5 - HYPERKALEMIA Assessment/Plan Current Medications Generic Name Dose Route Start Last Admin Trade Name Freq PRN Reason Stop Dose Admin Apixaban 5 mg 04/05/17 10:00 04/11/17 09:05 Eliquis - PO 5 mg BID SUJATHA Administration Brimonidine Tartrate 1 drop 04/05/17 06:00 04/11/17 14:53 Alphagan P 0.1% - OS 1 drop TID SUJATHA Administration Gabapentin 300 mg 04/05/17 06:00 04/11/17 14:53 Neurontin - PO 300 mg TID SUJATHA Administration IV Flush 8 ml 04/11/17 08:53 Picc Line Flush IVPUSH PRN PRN Protocol Latanoprost 1 drop 04/05/17 10:00 04/11/17 09:04 Xalatan 0.005% Eye Drops - OD 1 drop DAILY SUJATHA Administration Metoprolol Succinate 50 mg 04/05/17 10:00 04/11/17 09:08 Toprol Xl - PO 50 mg DAILY SUJATHA Administration Tamsulosin HCl 0.4 mg 04/05/17 08:30 04/11/17 09:04 Flomax - PO 0.4 mg DAILY@0830 SUJATHA Administration Valsartan 80 mg 04/07/17 12:28 04/11/17 11:06 Diovan - PO Not Given DAILY SUJATHA Impression 1. hyperkalemia 2. CKD 3. htn 4. a-fib 5. weakness 6. hx CVA 7. urinary obstruction with indwelling andres 8. leukocytosis 9. UTI Plan - cont current meds - bp is stable - cont diovan - thiazide on hold - discussed plan with - cont abx for UTI - will complete renal workup in office - will follow PRN
[2017-04-11 18:19] VITALS: BP 116/71; TEMP 98.5
--- NOTE | 2017-04-28 22:56 | DS ---
Physical Examination Vital Signs: Vital Signs Temperature 98.5 F 04/11/17 18:00 Pulse Rate 60 04/11/17 18:00 Respiratory Rate 18 04/11/17 18:00 Blood Pressure 116/71 04/11/17 18:00 O2 Sat by Pulse Oximetry (%) 98 04/11/17 09:00 Constitutional: Yes: No Distress Cardiovascular: Yes: Regular Rate and Rhythm Respiratory: Yes: Regular, CTA Bilaterally Gastrointestinal: Yes: Normal Bowel Sounds, Soft Labs: CBC, BMP 04/11/17 06:30 04/11/17 06:30 Discharge Summary Reason For Visit: ACUTE KIDNEY INJURY, HYPERKALEMIA (1) Bacteremia (2) Acute renal failure (3) Atrial fibrillation (4) BPH (benign prostatic hyperplasia) (5) CVA (cerebral vascular accident) (6) Diabetes (7) HTN (hypertension) (8) Hyperkalemia Hospital Course: Pt is a 71 y/o male who is a poor historian w/ PMH significant for CVA w/ lt sided weakness/aphasia, HTN, diabetes ad BPH. Pt was sent by his urologist bc of abnormal blood work. In the ER pt was found to have K+ of 6.2 wc was treated and also to have acute renal failure. As per medical record pt recently returned from [facility] and had complaints of lower abdominal pain/weakness/ hematuria. Pt was treated for bacteremia and became stable over his stay. Condition: Good - Instructions Diet, Activity, Other Instructions: 2 gram sodium diet Renal diet Maintain indewelling andres cathetar for urinary retention. See urologist next week Dr. Roman Tripp See dr Jesus Tripp in 1 week [phone] Referrals: STAFF,NOT ON [Primary Care Provider] - Disposition: VNS/HOME HEALTH CARE - Home Medications Comprehensive Discharge Medication List: Ambulatory Orders Metoprolol Succinate [Toprol XL -] 50 mg PO DAILY 10/03/14 Apixaban [Eliquis] 5 mg PO BID 06/03/15 Alphagan P 0.1% - 1 drop OS TID 04/04/17 Flomax 0.4 mg PO 04/04/17 Latanoprost 0.005% Eye Drops 1 drop OD DAILY 04/04/17 Ertapenem Sodium [Invanz -] 1 gm IVPB DAILY 14 Days #14 vial 04/11/17 Valsartan [Diovan] 80 mg PO DAILY #30 tablet 04/11/17
== END 2017-04-11 18:35 | disposition home health service (06) | DRG 683 ==
LOC: JER 11:59 → JERBED 17:34 → J6S 21:05 → J7W 04-07 13:00
PROVIDERS: ADMIT Internal Medicine; ATTEND Internal Medicine
PROC: 02HV33Z Insertion of Infusion Device into Superior Vena Cava, Percutaneous Approach (ICD-10-PCS; principal; 2017-04-11)
DX: N17.9 Acute kidney failure, unspecified (principal); I69.354 Hemiplegia and hemiparesis following cerebral infarction affecting left non-dominant side; N13.8 Other obstructive and reflux uropathy; R78.81 Bacteremia; N39.0 Urinary tract infection, site not specified; N40.0 Benign prostatic hyperplasia without lower urinary tract symptoms; D64.9 Anemia, unspecified; E87.5 Hyperkalemia; I69.320 Aphasia following cerebral infarction; I48.91 Unspecified atrial fibrillation; D72.828 Other elevated white blood cell count; I12.9 Hypertensive chronic kidney disease with stage 1 through stage 4 chronic kidney disease, or unspecified chronic kidney disease; E11.22 Type 2 diabetes mellitus with diabetic chronic kidney disease; N18.9 Chronic kidney disease, unspecified; B96.29 Other Escherichia coli [E. coli] as the cause of diseases classified elsewhere; Z95.0 Presence of cardiac pacemaker
CPT/HCPCS: 36415; 36569; 76775-TC; 76856-TC; 77001-TC; 80048; 80053; 81003; 81015; 82550; 82553; 83036; 84484; 85025; 85610; 86850; 86900; 86901; 87040; 87086; 87186; 93005; 93010; 97116-GP; 97161-GP; 99283-25; C1751

== ENCOUNTER 2017-05-26 21:46 | Inpatient (IN) | payer OTHER, BC ==
[2017-05-26 21:54] VITALS: BMI 28.3
--- NOTE | 2017-05-26 21:55 | PDOC ---
Rapid Medical Evaluation Time Seen by Provider: 05/26/17 21:49 Medical Evaluation: Allergies Allergy/AdvReac Type Severity Reaction Status Date / Time No Known Drug Allergies Allergy Verified 04/04/17 12:08 05/26/17 21:50 The patient presents with a chief complaint of: [Turp 1 week ago, now fever and abdominal pain. Sent by Dr. Gongora] I have performed a brief in-person evaluation of this patient. Pertinent physical exam findings:Patient h/o stroke, expressive aphasia , poor hearing. 102.9 temp, tylenol at 3 pm. Generalized abdominal pain. Lungs clear. I have ordered the following: [UA. UC] The patient will proceed to the ED for further evaluation. Discharge Disposition - Diagnosis Fever - Referrals - Patient Instructions - Post Discharge Activity
[2017-05-26] MEDS ORDERED: ACETAMINOPHEN 325 MG TABLET (FP) ONE (23:40)
[2017-05-26 23:43] LABS: URINE APPEARANCE CLEAR; URINE BILIRUBIN NEGATIVE (NEGATIVE); URINE BLOOD 2+ (NEGATIVE); URINE COLOR STRAW; URINE GLUCOSE (UA) NEGATIVE (NEGATIVE); URINE KETONE NEGATIVE (NEGATIVE); URINE NITRITE NEGATIVE (NEGATIVE); URINE PROTEIN NEGATIVE (NEGATIVE); URINE UROBILINOGEN NEGATIVE mg/dL (0.2-1.0)
[2017-05-26 23:45] LABS: URINE LEUK ESTERASE 3+ (NEGATIVE)
--- NOTE | 2017-05-27 00:25 | PDOC ---
History of Present Illness - General History Source: Family - History of Present Illness Initial Comments: 05/27/17 01:03 The patient is a 72 year old male, with a significant past medical history of CVA with left sided residual weakness and aphasia, hypertension, A.fib on eliquis, s/p pacemaker, diabetes, benign prostate hypertrophy, renal insufficiency, and hyperkalemia, s/p turp 1 week ago, who presents with complaint of fever and lower abdominal pain today. The patient had a prior admission where he was receiving IV Abx in March 2017 via PICC line and discharged on 04/28/17. : Dr Tripp PMD: Dr Gongora <Ira Fernandez - Last Filed: 05/27/17 01:55> <Livia Butler - Last Filed: 05/27/17 02:02> - General Chief Complaint: SIRS, Suspected/Possible Stated Complaint: ABD PAIN Time Seen by Provider: 05/26/17 21:49 Past History <Ira Fernandez - Last Filed: 05/27/17 01:55> - Past Medical History Anemia: No Asthma: No Cancer: No Cardiac Disorders: Yes (PPM) CVA: Yes (TIA X2, CVA) COPD: No CHF: No Dementia: No Diabetes: No GI Disorders: No Disorders: No HTN: Yes Hypercholesterolemia: No Liver Disease: No Seizures: No Thyroid Disease: No - Surgical History Cardiac Surgery: Yes (PACEMAKER 2009) - Immunization History Immunization Up to Date: Yes - Suicide/Smoking/Psychosocial Hx Smoking History: Never smoked Have you smoked in the past 12 months: No Hx Alcohol Use: No Drug/Substance Use Hx: No Substance Use Type: None Hx Substance Use Treatment: No <Livia Butler - Last Filed: 05/27/17 02:02> - Past Medical History Allergies/Adverse Reactions: Allergies Allergy/AdvReac Type Severity Reaction Status Date / Time No Known Drug Allergies Allergy Verified 05/27/17 01:35 Home Medications: Ambulatory Orders Metoprolol Succinate [Toprol XL -] 50 mg PO DAILY 10/03/14 Apixaban [Eliquis] 5 mg PO BID 06/03/15 Alphagan P 0.1% - 1 drop OS TID 04/04/17 Flomax 0.4 mg PO 04/04/17 Latanoprost 0.005% Eye Drops 1 drop OD DAILY 04/04/17 Ertapenem Sodium [Invanz -] 1 gm IVPB DAILY 14 Days #14 vial 04/11/17 Valsartan [Diovan] 80 mg PO DAILY #30 tablet 04/11/17 Review of Systems - Review of Systems Able to Perform ROS?: No (as per ) <Ira Fernandez - Last Filed: 05/27/17 01:55> *Physical Exam - Vital Signs Last Vital Signs Temp Pulse Resp BP Pulse Ox 102.9 F H 84 18 148/73 98 05/26/17 21:51 05/26/17 21:51 05/26/17 21:51 05/26/17 21:51 05/26/17 21:51 - Physical Exam Comments: 05/27/17 01:04 GENERAL: (+) febrile. Awake and alert. No acute distress. HEENT: (+) dry mucous membranes. Normocephalic, atraumatic. PERRLA, EOMI. No conjunctival pallor. Sclera are non-icteric. Oropharynx is clear. NECK: Supple. Full ROM. No JVD. Carotid pulses 2+ and symmetric, without bruits. No thyromegaly. No lymphadenopathy. CARDIOVASCULAR: (+) tachycardic rate and normal rhythm. No murmurs, rubs, or gallops. Distal pulses are 2+ and symmetric. PULMONARY: No evidence of respiratory distress. Lungs clear to auscultation bilaterally. No wheezing, rales or rhonchi. ABDOMINAL: (+) suprapubic tenderness. Soft. Non-distended. No rebound or guarding. No organomegaly. Normoactive bowel sounds. MUSCULOSKELETAL Normal range of motion at all joints. No bony deformities or tenderness. No CVA tenderness. EXTREMITIES: No cyanosis. No clubbing. No edema. No calf tenderness. SKIN: Warm and dry. Normal capillary refill. No rashes. No jaundice. NEUROLOGICAL: (+) aphasic at baseline. Alert, awake, appropriate. Cranial nerves 2-12 intact. Normoreflexic in the upper and lower extremities. Toes are down-going bilaterally. Gait is normal without ataxia. PSYCHIATRIC: Cooperative. Good eye contact. Appropriate mood and affect. <Ira Fernandez - Last Filed: 05/27/17 01:55> - Vital Signs Last Vital Signs Temp Pulse Resp BP Pulse Ox 102.9 F H 84 18 148/73 98 05/26/17 21:51 05/26/17 21:51 05/26/17 21:51 05/26/17 21:51 05/26/17 21:51 <Livia Butler - Last Filed: 05/27/17 02:02> ED Treatment Course - LABORATORY CBC & Chemistry Diagram: 05/27/17 00:59 05/27/17 00:59 - ADDITIONAL ORDERS Additional order review: Laboratory Results 05/26/17 Unknown Urine Color Straw Urine Appearance Clear Urine pH 7.0 Ur Specific [place] 1.003 Urine Protein Negative Urine Glucose (UA) Negative Urine Ketones Negative Urine Blood 2+ H Urine Nitrite Negative Urine Bilirubin Negative Urine Urobilinogen Negative Ur Leukocyte Esterase 3+ H Urine WBC (Auto) 36 Urine RBC (Auto) 1 <Ira Fernandez - Last Filed: 05/27/17 01:55> - LABORATORY CBC & Chemistry Diagram: 05/27/17 00:59 05/27/17 00:59 - ADDITIONAL ORDERS Additional order review: Laboratory Results 05/26/17 Unknown Urine Color Straw Urine Appearance Clear Urine pH 7.0 Ur Specific [place] 1.003 Urine Protein Negative Urine Glucose (UA) Negative Urine Ketones Negative Urine Blood 2+ H Urine Nitrite Negative Urine Bilirubin Negative Urine Urobilinogen Negative Ur Leukocyte Esterase 3+ H Urine WBC (Auto) 36 Urine RBC (Auto) 1 <Edwar Butlera Sakina - Last Filed: 05/27/17 02:02> Medical Decision Making - Medical Decision Making 05/27/17 01:38 This patient's case was discussed with his urologist, Dr. Iraj Tripp, at this time. 05/27/17 01:50 The patient's case was discussed with Hospitalist who requested I contact Dr. Evelin Brewer who recently discharged this patient from a ~3 week admission on 05/05/17. Dr. Brewer was called at 1:56 and the case was discussed. Dr. Brewer accepts this patient's admission because she works with Dr. Iraj Tripp in the past. <Ira Fernandez - Last Filed: 05/27/17 01:55> *DC/Admit/Observation/Transfer - Attestations Scribe Attestion: 05/27/17 01:06 Documentation prepared by Ira Fernandez, acting as medical record assistant for Livia Butler MD <Ira Fernandez - Last Filed: 05/27/17 01:55> - Discharge Dispostion Admit: Yes <Livia Butler - Last Filed: 05/27/17 02:02> Diagnosis at time of Disposition: Systemic inflammatory response syndrome (SIRS), ESBL E. coli carrier Fever Qualifiers: Fever type: due to other condition Qualified Code(s): R50.81 - Fever presenting with conditions classified elsewhere UTI (urinary tract infection) Qualifiers: Urinary tract infection type: acute cystitis Hematuria presence: without hematuria Qualified Code(s): N30.00 - Acute cystitis without hematuria - Referrals Referrals: William Gongora [Primary Care Provider] - - Patient Instructions - Post Discharge Activity
[2017-05-27] MEDS ORDERED: LEVOFLOXACIN 500 MG IVPB 500 MG/100 ML BAG IVPB ONE ×2 (00:38→01:11)
[2017-05-27 01:13] LABS: MCH 29.5 pg (25.7-33.7); MCHC 32.4 g/dl (32.0-35.9); MEAN CELL VOLUME 90.9 fl (80-96); MEAN PLT VOLUME 9.8 fl (7.5-11.1); PLATELET COUNT 178 K/MM3 (134-434); RBC 4.07 M/mm3 (4.00-5.60); RDW 13.7 % (11.9-15.9); WHITE BLOOD COUNT 21.6 K/mm3 (4.0-10.0)
[2017-05-27] MEDS ORDERED: SODIUM CHLORIDE 0.9% 1000 ML INFUS.BAG IV STA (01:32)
[2017-05-27 01:38] LABS: ALBUMIN 3.5 g/dl (3.4-5.0); ANION GAP 10 (8-16); BILIRUBIN,TOTAL 0.7 mg/dL (0.2-1.0); BLOOD UREA NITROGEN 10 mg/dL (7-18); CALCIUM 8.7 mg/dL (8.5-10.1); CHLORIDE 97 mmol/L (98-107); CO2 29 mmol/L (21-32); CREATININE 1.3 mg/dL (0.7-1.3); GLUCOSE,RANDOM 172 mg/dL (74-106); POTASSIUM 3.9 mmol/L (3.5-5.1); SGOT/AST 15 U/L (15-37); SGPT/ALT 24 U/L (12-78); SODIUM 136 mmol/L (136-145); TOT PROT 7.5 g/dl (6.4-8.2)
[2017-05-27 01:39] LABS: ALK PHOS 59 U/L (45-117)
[2017-05-27] MEDS ORDERED: ERTAPENEM SODIUM 1 GM in SODIUM CHLORIDE 50 ML IVPB ONE (01:39)
[2017-05-27 01:46] LABS: INR 1.76 (0.82-1.09); PROTHROMBIN TIME (PATIENT) 19.9 SEC (9.98-11.88)
[2017-05-27 02:13] LABS: VENOUS PC02 43.3 mmHg (38-52); VENOUS PH 7.42 (7.32-7.42); VENOUS PO2 43.4 mmHg (28-48)
[2017-05-27 03:18] LABS: MACROCYTOSIS 0; PLATELET ESTIMATE NORMAL
[2017-05-27] MEDS ORDERED: ACETAMINOPHEN 325 MG TABLET (FP) PO ONE (07:11)
[2017-05-27 13:10] LABS: EOS % 0.4 % (0-4.5); HEMATOCRIT 36.9 % (35.4-49); HEMOGLOBIN 11.8 GM/dL (11.7-16.9); LYMPH % 11.6 % (8-40); MCH 29.3 pg (25.7-33.7); MCHC 31.9 g/dl (32.0-35.9); MEAN CELL VOLUME 91.8 fl (80-96); MEAN PLT VOLUME 9.6 fl (7.5-11.1); MONO % 8.5 % (3.8-10.2); NEUT % 78.5 % (42.8-82.8); PLATELET COUNT 167 K/MM3 (134-434); RBC 4.02 M/mm3 (4.00-5.60); RDW 13.9 % (11.9-15.9); WHITE BLOOD COUNT 19.3 K/mm3 (4.0-10.0)
[2017-05-27] MEDS: FINASTERIDE 5 MG TABLET (FP) PO SCH (13:30)
[2017-05-27] MEDS: APIXABAN 5 MG TABLET PO SCH ×2 (13:30→22:11)
[2017-05-27] MEDS: DEXTROSE 5%-0.45% SALINE 1,000 ML IV SCH (13:30)
[2017-05-27 13:37] LABS: ALBUMIN 3.3 g/dl (3.4-5.0); ANION GAP 6 (8-16); BLOOD UREA NITROGEN 9 mg/dL (7-18); CHLORIDE 106 mmol/L (98-107); CO2 29 mmol/L (21-32); GLUCOSE,RANDOM 97 mg/dL (74-106); POTASSIUM 3.7 mmol/L (3.5-5.1); SODIUM 141 mmol/L (136-145)
[2017-05-27] MEDS: GABAPENTIN 300 MG CAPSULE (FP) PO SCH ×2 (13:42→22:11)
--- NOTE | 2017-05-27 13:49 | EKG ---
Test Reason : Blood Pressure : / mmHG Vent. Rate : 061 BPM Atrial Rate : 326 BPM P-R Int : 000 ms QRS Dur : 144 ms QT Int : 470 ms P-R-T Axes : 000 -88 074 degrees QTc Int : 473 ms ATRIAL FLUTTER Ventricular-paced rhythm ABNORMAL ECG WHEN COMPARED WITH ECG OF 04-APR-2017 12:12, VENT. RATE HAS DECREASED BY 5 BPM Confirmed by MD LALIT, RAYMON ([id number]) on 05/27/2017 1:48:43 PM Referred By: Confirmed By:RAYMON COHN MD
--- NOTE | 2017-05-27 14:23 | CON.ID ---
Consult Consult Specialty:: infectious diseases Referred by:: Reason for Consultation:: fever,uti - History of Present Illness Chief Complaint: fever History of Present Illness: 72 y/o male PMH significant for HTN, Afib, BPH, CVA with residual lt sided weakness and aphasia, diabetes and, renal insufficiency. according tot he patient was ok but she went to jainism and came back and found patient was having fvers. patient was given 2 tylenolol by her.patient was well for some time then again the fever occurred which was more than 102 and she decided to bring the patient o the hospital Pt was recently treated for UTI w/ IV antibxs and PIC line. Pt had a TURP about 1 week ago. Pt now presented to the ER w/ complaints of lower abdominal pain but denies any nausea/vomiting. 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 Cardio/Vascular: Yes: AFIB, HTN Renal/: Yes: Renal Inusuff, BPH Endocrine: Yes: Diabetes Mellitus - Past Surgical History Past Surgical History: Yes: Permanent Pacemaker - Alcohol/Substance Use Hx Alcohol Use: No - Smoking History Smoking history: Never smoked Have you smoked in the past 12 months: No Home Medications - Allergies Allergies/Adverse Reactions: Allergies Allergy/AdvReac Type Severity Reaction Status Date / Time No Known Drug Allergies Allergy Verified 05/27/17 01:35 - Home Medications Home Medications: Ambulatory Orders Metoprolol Succinate [Toprol XL -] 50 mg PO DAILY 10/03/14 Apixaban [Eliquis] 5 mg PO BID 06/03/15 Alphagan P 0.1% - 1 drop OS TID 04/04/17 Latanoprost 0.005% Eye Drops 1 drop OD DAILY 04/04/17 Finasteride 5 mg PO DAILY 05/27/17 Gabapentin 300 mg PO TID 05/27/17 Tamsulosin HCl [Flomax] 0.4 mg PO BID 05/27/17 Review of Systems - Review of Systems Constitutional: reports: Fever Eyes: reports: No Symptoms HENT: reports: No Symptoms Neck: reports: No Symptoms Cardiovascular: reports: No Symptoms Respiratory: reports: No Symptoms Gastrointestinal: reports: Abdominal Pain Musculoskeletal: reports: No Symptoms Integumentary: reports: No Symptoms Neurological: reports: No Symptoms Endocrine: reports: No Symptoms Hematology/Lymphatic: reports: No Symptoms Psychiatric: reports: No Symptoms Physical Exam Vital Signs: Vital Signs Temperature 97.7 F 05/27/17 13:30 Pulse Rate 60 05/27/17 13:30 Respiratory Rate 16 05/27/17 13:30 Blood Pressure 124/72 05/27/17 13:30 O2 Sat by Pulse Oximetry (%) 100 05/27/17 13:30 Constitutional: Yes: Well Nourished, No Distress, Calm Eyes: Yes: Conjunctiva Clear HENT: Yes: Atraumatic, Normocephalic Neck: Yes: Supple, Trachea Midline Cardiovascular: Yes: Regular Rate and Rhythm Respiratory: Yes: Regular, CTA Bilaterally Gastrointestinal: Yes: Normal Bowel Sounds, Soft Musculoskeletal: Yes: WNL Extremities: Yes: WNL Neurological: Yes: Alert, Other (aphasia,rt sided weakness) Psychiatric: Yes: Alert Labs: CBC, BMP 05/27/17 12:56 Imaging - Results Chest X-ray: Report Reviewed, Image Reviewed Assessment/Plan after looking at the patient and examining the patient i am worried that this could be due to either from prostate or uti his flu was negative and so his lung findings also patient was recently treated for esbl - Problems (1) UTI (urinary tract infection) Code(s): N39.0 - URINARY TRACT INFECTION, SITE NOT SPECIFIED Qualifiers: Urinary tract infection type: acute cystitis Hematuria presence: without hematuria Qualified Code(s): N30.00 - Acute cystitis without hematuria (2) Systemic inflammatory response syndrome (SIRS) Code(s): R65.10 - SIRS OF NON-INFECTIOUS ORIGIN W/O ACUTE ORGAN DYSFUNCTION (3) Atrial fibrillation Code(s): I48.91 - UNSPECIFIED ATRIAL FIBRILLATION (4) Diabetes Code(s): E11.9 - TYPE 2 DIABETES MELLITUS WITHOUT COMPLICATIONS (5) HTN (hypertension) Code(s): I10 - ESSENTIAL (PRIMARY) HYPERTENSION plan erickson tart patient on ceftriaxone for now await for all cx reports once we ahve all reports in hand then we will decide further mgmt if patient spikes again will do u/s of the prostate
[2017-05-27] MEDS: CEFTRIAXONE 1 G/50 ML PREMIX 50 ML IVPB SCH (14:55)
[2017-05-27] MEDS ORDERED: CEFTRIAXONE 1 GM/50 ML BAG ONE (14:58)
[2017-05-27 15:26] LABS: ALK PHOS 64 U/L (45-117); BILIRUBIN,TOTAL 0.8 mg/dL (0.2-1.0); CREATININE 1.1 mg/dL (0.7-1.3); SGPT/ALT 34 U/L (12-78); TOT PROT 7.3 g/dl (6.4-8.2)
[2017-05-27 16:30] LABS: SGOT/AST 27 U/L (15-37)
--- NOTE | 2017-05-27 21:12 | HP ---
Admitting History and Physical - Admission History of Present Illness: Pt is a 72 y/o male PMH significant for HTN, Afib, BPH, CVA with residual lt sided weakness and aphasia, diabetes and, renal insufficiency. Pt was recently treated for UTI w/ IV antibxs and PIC line. Pt had a TURP about 1 week ago. Pt now presented to the ER w/ complaints of lower abdominal pain but denies any nausea/vomiting. Pt does complain of fever and chills. 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 Cardiovascular: Yes: AFIB, HTN Renal/: Yes: Renal Inusuff, BPH Endocrine: Yes: Diabetes Mellitus - Past Surgical History Past Surgical History: Yes: Permanent Pacemaker, TURP - Smoking History Smoking history: Never smoked Have you smoked in the past 12 months: No - Alcohol/Substance Use Hx Alcohol Use: No Home Medications - Allergies Allergies/Adverse Reactions: Allergies Allergy/AdvReac Type Severity Reaction Status Date / Time No Known Drug Allergies Allergy Verified 05/27/17 01:35 - Home Medications Home Medications: Ambulatory Orders Metoprolol Succinate [Toprol XL -] 50 mg PO DAILY 10/03/14 Apixaban [Eliquis] 5 mg PO BID 06/03/15 Alphagan P 0.1% - 1 drop OS TID 04/04/17 Latanoprost 0.005% Eye Drops 1 drop OD DAILY 04/04/17 Finasteride 5 mg PO DAILY 05/27/17 Gabapentin 300 mg PO TID 05/27/17 Tamsulosin HCl [Flomax] 0.4 mg PO BID 05/27/17 Family Disease History - Family Disease History Family History: Unremarkable Review of Systems - Review of Systems Constitutional: reports: Loss of Appetite, Weakness Eyes: reports: No Symptoms HENT: reports: No Symptoms Neck: reports: No Symptoms Cardiovascular: reports: No Symptoms Respiratory: reports: No Symptoms Gastrointestinal: reports: Abdominal Pain Genitourinary: reports: No Symptoms Physical Examination Vital Signs: Vital Signs Temperature 97.8 F 05/27/17 16:50 Pulse Rate 60 05/27/17 16:50 Respiratory Rate 16 05/27/17 16:50 Blood Pressure 121/70 05/27/17 16:50 O2 Sat by Pulse Oximetry (%) 100 05/27/17 16:50 Constitutional: Yes: No Distress HENT: Yes: WNL Neck: Yes: WNL, Supple Cardiovascular: Yes: WNL, Regular Rate and Rhythm Respiratory: Yes: WNL, CTA Bilaterally Gastrointestinal: Yes: WNL, Normal Bowel Sounds, Soft Musculoskeletal: Yes: WNL Extremities: Yes: WNL Edema: No Neurological: Yes: WNL, Alert, Oriented ...Motor Strength: WNL Labs: CBC, BMP 05/27/17 12:56 05/27/17 12:56 Problem List - Problems (1) UTI (urinary tract infection) Assessment/Plan: IV antibxs as per ID Monitor cultures Pt was recently treated for ESBL Uro consult Code(s): N39.0 - URINARY TRACT INFECTION, SITE NOT SPECIFIED Qualifiers: Urinary tract infection type: acute cystitis Hematuria presence: without hematuria Qualified Code(s): N30.00 - Acute cystitis without hematuria (2) Systemic inflammatory response syndrome (SIRS) Assessment/Plan: Cont IV fluids Monitor cultures Code(s): R65.10 - SIRS OF NON-INFECTIOUS ORIGIN W/O ACUTE ORGAN DYSFUNCTION (3) Atrial fibrillation Assessment/Plan: Heart rate controlled Cont eliquis Code(s): I48.91 - UNSPECIFIED ATRIAL FIBRILLATION (4) Diabetes Assessment/Plan: Cont sliding scale w/ coverage Code(s): E11.9 - TYPE 2 DIABETES MELLITUS WITHOUT COMPLICATIONS (5) HTN (hypertension) Code(s): I10 - ESSENTIAL (PRIMARY) HYPERTENSION
[2017-05-27] MEDS ORDERED: PT OWN MED DRAWER 7, Y5N ONE (21:14)
[2017-05-27] MEDS: LATANOPROST 0.005% OPHTH SOLN 2.5ML BOTTLE OD SCH (22:11)
[2017-05-28] MEDS: DEXTROSE 5%-0.45% SALINE 1,000 ML IV SCH ×2 (02:24→21:38)
[2017-05-28] MEDS: GABAPENTIN 300 MG CAPSULE (FP) PO SCH ×3 (05:53→21:39)
[2017-05-28] MEDS: INSULIN SLIDING SCALE (NOVOLOG) 1 VIAL SQ SCH ×4 (06:01→21:45)
[2017-05-28 08:02] LABS: BASO % 0.6 % (0-2.0); HEMATOCRIT 34.3 % (35.4-49); LYMPH % 17.6 % (8-40); MCH 29.4 pg (25.7-33.7); MCHC 32.2 g/dl (32.0-35.9); MEAN CELL VOLUME 91.2 fl (80-96); MEAN PLT VOLUME 9.8 fl (7.5-11.1); MONO % 10.1 % (3.8-10.2); NEUT % 68.7 % (42.8-82.8); PLATELET COUNT 160 K/MM3 (134-434); RBC 3.76 M/mm3 (4.00-5.60); RDW 13.7 % (11.9-15.9); WHITE BLOOD COUNT 11.4 K/mm3 (4.0-10.0)
[2017-05-28 08:29] LABS: CHLORIDE 105 mmol/L (98-107); POTASSIUM 3.8 mmol/L (3.5-5.1); SODIUM 140 mmol/L (136-145)
[2017-05-28] MEDS ORDERED: PT OWN MED DRAWER 7, Y5N ONE (08:46)
[2017-05-28 08:47] LABS: ALBUMIN 2.8 g/dl (3.4-5.0); ALK PHOS 48 U/L (45-117); ANION GAP 7 (8-16); BILIRUBIN,TOTAL 0.5 mg/dL (0.2-1.0); BLOOD UREA NITROGEN 9 mg/dL (7-18); CALCIUM 8.1 mg/dL (8.5-10.1); CO2 28 mmol/L (21-32); GLUCOSE,RANDOM 109 mg/dL (74-106); SGOT/AST 21 U/L (15-37); SGPT/ALT 26 U/L (12-78); TOT PROT 6.5 g/dl (6.4-8.2)
[2017-05-28] MEDS: CEFTRIAXONE 1 G/50 ML PREMIX 50 ML IVPB SCH (09:24)
[2017-05-28] MEDS: APIXABAN 5 MG TABLET PO SCH ×3 (09:24→21:49)
[2017-05-28] MEDS: FINASTERIDE 5 MG TABLET (FP) PO SCH (09:24)
[2017-05-28] MEDS ORDERED: INSULIN (NOVOLOG) ASPART 100 UNITS/ML 10ML VIAL ONE (11:54)
--- NOTE | 2017-05-28 14:56 | CONS ---
DATE OF CONSULTATION: DATE OF DICTATION: 05/28/2017 HISTORY OF PRESENT ILLNESS: The patient is a 71-year-old male admitted via the emergency room on May 27, 2017. The patient does have significant history of high blood pressure, atrial fibrillation, BPH and a CVA with residual left-sided weakness and expressive aphasia. He also has adult-onset diabetes and chronic renal insufficiency. The patient was recently treated for urosepsis and underwent transurethral laser vaporization of the prostate 4 weeks earlier. Presently he complains of lower abdominal pain. He denies nausea or vomiting. He does complain of fever or chills. He was found to have a white count of 21,000 in the emergency room. PAST MEDICAL HISTORY: Includes a CVA, atrial fibrillation, high blood pressure, chronic renal insufficiency, diabetes type 2, BPH (for which he underwent a vaporization of the prostate recently). He does have a permanent pacemaker. HABITS: He denies ethanolism or tobacco. ALLERGIES: He denies any allergies. MEDICATIONS: He is on Toprol, Eliquis, Alphagan, latanoprost eye drops, Proscar, gabapentin and Flomax. FAMILY HISTORY: Not significant. REVIEW OF SYSTEMS: No acute findings. PHYSICAL EXAMINATION: Vital Signs: In the emergency room, his temperature was 97, blood pressure 121/70, O2 saturation 100%. Abdomen: Some suprapubic tenderness. Neurological: The patient is aphasic and is unable to express himself. DIAGNOSTIC STUDIES: The patient underwent an EKG and blood workup. The blood revealed a white count of 19.3, with hemoglobin 12.8, hematocrit 36.9, platelets 167. BUN 9, creatinine 1, random glucose 109. Urine was sent for microbiology, and urine cultures grew out group D strep or enterococci, but still pending. Blood cultures revealed no growth. The patient's influenza A and B antigens were found to be negative. PLAN: A 16-Portuguese, 5-mL Terry was inserted without difficulty. A minimal amount of clear urine was drained. Will recommend discontinuing the Terry in the morning. The patient is urologically stable for discharge. Rafael [id number]
--- NOTE | 2017-05-28 15:12 | PN ---
Progress Note, Physician History of Present Illness: clinically patient looks stable no issues - Current Medication List Current Medications: Active Medications Apixaban (Eliquis -) 5 mg PO BID [facility] Last Admin: 05/28/17 09:24 Dose: 5 mg Finasteride (Proscar -) 5 mg PO DAILY [facility] Last Admin: 05/28/17 09:24 Dose: 5 mg Gabapentin (Neurontin -) 300 mg PO TID [facility] Last Admin: 05/28/17 14:52 Dose: 300 mg Dextrose/Sodium Chloride (D5-1/2ns -) 1,000 mls @ 75 mls/hr IV ASDIR [facility] Last Admin: 05/28/17 02:24 Dose: 75 mls/hr Vancomycin HCl 1,250 mg/ (Dextrose) 250 mls @ 250 mls/hr IVPB DAILY [facility] PRN Reason: Protocol Insulin Aspart (Novolog Vial Sliding Scale -) 1 vial SQ ACHS [facility] PRN Reason: Protocol Last Admin: 05/28/17 11:57 Dose: 2 units Latanoprost (Xalatan 0.005% Eye Drops -) 1 drop OD HS [facility] Last Admin: 05/27/17 22:11 Dose: 1 drop Metoprolol Succinate (Toprol Xl -) 50 mg PO DAILY [facility] Last Admin: 05/28/17 09:24 Dose: 50 mg Tamsulosin HCl (Flomax -) 0.4 mg PO BID [facility] - Objective Vital Signs: Vital Signs Temperature 98.4 F 05/28/17 14:40 Pulse Rate 60 05/28/17 14:40 Respiratory Rate 20 05/28/17 09:25 Blood Pressure 137/75 05/28/17 14:40 O2 Sat by Pulse Oximetry (%) 100 05/27/17 16:50 Constitutional: Yes: No Distress, Calm Cardiovascular: Yes: Regular Rate and Rhythm Respiratory: Yes: Regular, CTA Bilaterally Gastrointestinal: Yes: Normal Bowel Sounds, Soft Musculoskeletal: Yes: WNL Extremities: Yes: WNL Neurological: Yes: Alert, Other Labs: CBC, BMP 05/28/17 07:25 05/28/17 07:25 INR, PTT INR 1.76 (0.82-1.09) H 05/27/17 01:32 Assessment/Plan a - Problems (1) UTI (urinary tract infection) Code(s): N39.0 - URINARY TRACT INFECTION, SITE NOT SPECIFIED Qualifiers: Urinary tract infection type: acute cystitis Hematuria presence: without hematuria Qualified Code(s): N30.00 - Acute cystitis without hematuria (2) Systemic inflammatory response syndrome (SIRS) Code(s): R65.10 - SIRS OF NON-INFECTIOUS ORIGIN W/O ACUTE ORGAN DYSFUNCTION (3) Atrial fibrillation Code(s): I48.91 - UNSPECIFIED ATRIAL FIBRILLATION (4) Diabetes Code(s): E11.9 - TYPE 2 DIABETES MELLITUS WITHOUT COMPLICATIONS (5) HTN (hypertension) Code(s): I10 - ESSENTIAL (PRIMARY) HYPERTENSION cx noted plan will change abx to vanco await for identification of the organism if staph aureus echo rest continue to monitor
[2017-05-28] MEDS: VANCOMYCIN 1,250 MG in DEXTROSE 5%-WATER - 250 ML IVPB SCH (17:49)
--- NOTE | 2017-05-28 20:59 | PN ---
Progress Note, Physician History of Present Illness: No new complaints - Current Medication List Current Medications: Active Medications Apixaban (Eliquis -) 5 mg PO BID [facility] Last Admin: 05/28/17 09:24 Dose: 5 mg Finasteride (Proscar -) 5 mg PO DAILY [facility] Last Admin: 05/28/17 09:24 Dose: 5 mg Gabapentin (Neurontin -) 300 mg PO TID [facility] Last Admin: 05/28/17 14:52 Dose: 300 mg Dextrose/Sodium Chloride (D5-1/2ns -) 1,000 mls @ 75 mls/hr IV ASDIR [facility] Last Admin: 05/28/17 02:24 Dose: 75 mls/hr Vancomycin HCl 1,250 mg/ (Dextrose) 250 mls @ 166.667 mls/hr IVPB DAILY@1700 [facility] PRN Reason: Protocol Last Admin: 05/28/17 17:49 Dose: 166.667 mls/hr Insulin Aspart (Novolog Vial Sliding Scale -) 1 vial SQ ACHS [facility] PRN Reason: Protocol Last Admin: 05/28/17 17:49 Dose: 2 units Latanoprost (Xalatan 0.005% Eye Drops -) 1 drop OD HS [facility] Last Admin: 05/27/17 22:11 Dose: 1 drop Metoprolol Succinate (Toprol Xl -) 50 mg PO DAILY [facility] Last Admin: 05/28/17 09:24 Dose: 50 mg Tamsulosin HCl (Flomax -) 0.4 mg PO BID [facility] - Objective Vital Signs: Vital Signs Temperature 98.4 F 05/28/17 14:40 Pulse Rate 60 05/28/17 14:40 Respiratory Rate 20 05/28/17 09:25 Blood Pressure 137/75 05/28/17 14:40 O2 Sat by Pulse Oximetry (%) 100 05/27/17 16:50 Constitutional: Yes: No Distress HENT: Yes: WNL Neck: Yes: WNL, Supple Cardiovascular: Yes: WNL, Regular Rate and Rhythm Respiratory: Yes: WNL, Regular, CTA Bilaterally Gastrointestinal: Yes: WNL, Normal Bowel Sounds, Soft Extremities: Yes: WNL Edema: No Labs: CBC, BMP 05/28/17 07:25 05/28/17 07:25 INR, PTT INR 1.76 (0.82-1.09) H 05/27/17 01:32 Problem List - Problems (1) UTI (urinary tract infection) Assessment/Plan: Sepsis due to UTI IV Vanco Monitor cultures Code(s): N39.0 - URINARY TRACT INFECTION, SITE NOT SPECIFIED Qualifiers: Urinary tract infection type: acute cystitis Hematuria presence: without hematuria Qualified Code(s): N30.00 - Acute cystitis without hematuria (2) Systemic inflammatory response syndrome (SIRS) Assessment/Plan: Cont IV fluids Monitor cultures Code(s): R65.10 - SIRS OF NON-INFECTIOUS ORIGIN W/O ACUTE ORGAN DYSFUNCTION (3) BPH (benign prostatic hyperplasia) Assessment/Plan: Cont proscar/flomax Code(s): N40.0 - BENIGN PROSTATIC HYPERPLASIA WITHOUT LOWER URINRY TRACT SYMP (4) Atrial fibrillation Assessment/Plan: Heart rate controlled Cont eliquis Code(s): I48.91 - UNSPECIFIED ATRIAL FIBRILLATION (5) Diabetes Assessment/Plan: Cont sliding scale w/ coverage Code(s): E11.9 - TYPE 2 DIABETES MELLITUS WITHOUT COMPLICATIONS (6) HTN (hypertension) Assessment/Plan: BP stable Cont toprol Code(s): I10 - ESSENTIAL (PRIMARY) HYPERTENSION
[2017-05-28] MEDS: TAMSULOSIN HCL 0.4 MG CAP.ER.24H (FP) PO SCH (21:39)
[2017-05-28] MEDS: LATANOPROST 0.005% OPHTH SOLN 2.5ML BOTTLE OD SCH (21:42)
[2017-05-29] MEDS: INSULIN SLIDING SCALE (NOVOLOG) 1 VIAL SQ SCH ×4 (06:11→22:11)
[2017-05-29] MEDS: GABAPENTIN 300 MG CAPSULE (FP) PO SCH ×3 (06:11→22:10)
[2017-05-29] MEDS ORDERED: PT OWN MED DRAWER 7, Y5N ONE ×2 (09:06→16:57)
[2017-05-29] MEDS: FINASTERIDE 5 MG TABLET (FP) PO SCH (09:11)
[2017-05-29] MEDS: TAMSULOSIN HCL 0.4 MG CAP.ER.24H (FP) PO SCH ×2 (09:11→22:11)
[2017-05-29] MEDS: APIXABAN 5 MG TABLET PO SCH ×2 (09:12→22:10)
[2017-05-29] MEDS ORDERED: INSULIN (NOVOLOG) ASPART 100 UNITS/ML 10ML VIAL ONE (11:21)
--- NOTE | 2017-05-29 16:09 | PN ---
Progress Note, Physician History of Present Illness: stable pain in the rt side of the neck otherwise looks good - Current Medication List Current Medications: Active Medications Apixaban (Eliquis -) 5 mg PO BID [facility] Last Admin: 05/29/17 09:12 Dose: 5 mg Finasteride (Proscar -) 5 mg PO DAILY [facility] Last Admin: 05/29/17 09:11 Dose: 5 mg Gabapentin (Neurontin -) 300 mg PO TID [facility] Last Admin: 05/29/17 12:50 Dose: 300 mg Dextrose/Sodium Chloride (D5-1/2ns -) 1,000 mls @ 75 mls/hr IV ASDIR [facility] Last Admin: 05/28/17 21:38 Dose: 75 mls/hr Vancomycin HCl 1,250 mg/ (Dextrose) 250 mls @ 166.667 mls/hr IVPB DAILY@1700 [facility] PRN Reason: Protocol Last Admin: 05/28/17 17:49 Dose: 166.667 mls/hr Insulin Aspart (Novolog Vial Sliding Scale -) 1 vial SQ ACHS [facility] PRN Reason: Protocol Last Admin: 05/29/17 11:38 Dose: Not Given Latanoprost (Xalatan 0.005% Eye Drops -) 1 drop OD HS [facility] Last Admin: 05/28/17 21:42 Dose: 1 drop Metoprolol Succinate (Toprol Xl -) 50 mg PO DAILY [facility] Last Admin: 05/29/17 09:10 Dose: 50 mg Tamsulosin HCl (Flomax -) 0.4 mg PO BID [facility] Last Admin: 05/29/17 09:11 Dose: 0.4 mg - Objective Vital Signs: Vital Signs Temperature 98.1 F 05/29/17 14:50 Pulse Rate 60 05/29/17 14:50 Respiratory Rate 20 05/29/17 05:10 Blood Pressure 143/73 05/29/17 14:50 O2 Sat by Pulse Oximetry (%) 98 05/28/17 21:00 Constitutional: Yes: No Distress, Calm Cardiovascular: Yes: Regular Rate and Rhythm Respiratory: Yes: Regular, CTA Bilaterally Gastrointestinal: Yes: Normal Bowel Sounds, Soft Musculoskeletal: Yes: Other Extremities: Yes: WNL Neurological: Yes: Alert, Oriented Psychiatric: Yes: Alert, Oriented Labs: CBC, BMP 05/28/17 07:25 05/28/17 07:25 INR, PTT INR 1.76 (0.82-1.09) H 05/27/17 01:32 Assessment/Plan a - Problems (1) UTI (urinary tract infection) Code(s): N39.0 - URINARY TRACT INFECTION, SITE NOT SPECIFIED Qualifiers: Urinary tract infection type: acute cystitis Hematuria presence: without hematuria Qualified Code(s): N30.00 - Acute cystitis without hematuria (2) Systemic inflammatory response syndrome (SIRS) Code(s): R65.10 - SIRS OF NON-INFECTIOUS ORIGIN W/O ACUTE ORGAN DYSFUNCTION (3) Atrial fibrillation Code(s): I48.91 - UNSPECIFIED ATRIAL FIBRILLATION (4) Diabetes Code(s): E11.9 - TYPE 2 DIABETES MELLITUS WITHOUT COMPLICATIONS (5) HTN (hypertension) Code(s): I10 - ESSENTIAL (PRIMARY) HYPERTENSION cx noted plan continue vanco await for identification of the organism if staph aureus echo rest continue to monitor
[2017-05-29] MEDS: VANCOMYCIN 1,250 MG in DEXTROSE 5%-WATER - 250 ML IVPB SCH (17:03)
[2017-05-29] MEDS ORDERED: ACETAMINOPHEN 325 MG TABLET (FP) PO ONE (17:30)
[2017-05-29] MEDS: LATANOPROST 0.005% OPHTH SOLN 2.5ML BOTTLE OD SCH (22:11)
[2017-05-29] MEDS: DEXTROSE 5%-0.45% SALINE 1,000 ML IV SCH (22:14)
--- NOTE | 2017-05-29 22:14 | PN ---
Progress Note, Physician History of Present Illness: No new complaints - Current Medication List Current Medications: Active Medications Apixaban (Eliquis -) 5 mg PO BID [facility] Last Admin: 05/29/17 09:12 Dose: 5 mg Finasteride (Proscar -) 5 mg PO DAILY [facility] Last Admin: 05/29/17 09:11 Dose: 5 mg Gabapentin (Neurontin -) 300 mg PO TID [facility] Last Admin: 05/29/17 12:50 Dose: 300 mg Dextrose/Sodium Chloride (D5-1/2ns -) 1,000 mls @ 75 mls/hr IV ASDIR [facility] Last Admin: 05/28/17 21:38 Dose: 75 mls/hr Vancomycin HCl 1,250 mg/ (Dextrose) 250 mls @ 166.667 mls/hr IVPB DAILY@1700 [facility] PRN Reason: Protocol Last Admin: 05/29/17 17:03 Dose: 166.667 mls/hr Insulin Aspart (Novolog Vial Sliding Scale -) 1 vial SQ ACHS [facility] PRN Reason: Protocol Last Admin: 05/29/17 16:34 Dose: Not Given Latanoprost (Xalatan 0.005% Eye Drops -) 1 drop OD HS [facility] Last Admin: 05/28/17 21:42 Dose: 1 drop Metoprolol Succinate (Toprol Xl -) 50 mg PO DAILY [facility] Last Admin: 05/29/17 09:10 Dose: 50 mg Tamsulosin HCl (Flomax -) 0.4 mg PO BID [facility] Last Admin: 05/29/17 09:11 Dose: 0.4 mg - Objective Vital Signs: Vital Signs Temperature 98.9 F 05/29/17 21:38 Pulse Rate 80 05/29/17 21:38 Respiratory Rate 20 05/29/17 21:38 Blood Pressure 144/70 05/29/17 21:38 O2 Sat by Pulse Oximetry (%) 98 05/29/17 20:59 Constitutional: Yes: Well Nourished Neck: Yes: WNL, Supple Cardiovascular: Yes: WNL, Regular Rate and Rhythm Respiratory: Yes: WNL, Regular, CTA Bilaterally Gastrointestinal: Yes: WNL, Normal Bowel Sounds, Soft Extremities: Yes: WNL Edema: No Labs: CBC, BMP 05/28/17 07:25 05/28/17 07:25 INR, PTT INR 1.76 (0.82-1.09) H 05/27/17 01:32 Problem List - Problems (1) UTI (urinary tract infection) Assessment/Plan: Sepsis due to UTI Bacteremia Blood culture (+) for staphylococcus ?Contaminant IV Vanco Code(s): N39.0 - URINARY TRACT INFECTION, SITE NOT SPECIFIED Qualifiers: Urinary tract infection type: acute cystitis Hematuria presence: without hematuria Qualified Code(s): N30.00 - Acute cystitis without hematuria (2) Systemic inflammatory response syndrome (SIRS) Assessment/Plan: Cont IV fluids Monitor cultures Code(s): R65.10 - SIRS OF NON-INFECTIOUS ORIGIN W/O ACUTE ORGAN DYSFUNCTION (3) Atrial fibrillation Assessment/Plan: Heart rate controlled Cont eliquis Code(s): I48.91 - UNSPECIFIED ATRIAL FIBRILLATION (4) Diabetes Assessment/Plan: Cont sliding scale w/ coverage Code(s): E11.9 - TYPE 2 DIABETES MELLITUS WITHOUT COMPLICATIONS (5) HTN (hypertension) Assessment/Plan: BP stable Cont toprol Code(s): I10 - ESSENTIAL (PRIMARY) HYPERTENSION
[2017-05-30] MEDS: GABAPENTIN 300 MG CAPSULE (FP) PO SCH ×3 (06:28→21:29)
[2017-05-30] MEDS: INSULIN SLIDING SCALE (NOVOLOG) 1 VIAL SQ SCH ×4 (06:28→22:07)
[2017-05-30] MEDS ORDERED: INSULIN (NOVOLOG) ASPART 100 UNITS/ML 10ML VIAL ONE ×4 (06:46→22:05)
[2017-05-30] MEDS ORDERED: PT OWN MED DRAWER 7, Y5N ONE ×2 (09:16→16:33)
[2017-05-30] MEDS: FINASTERIDE 5 MG TABLET (FP) PO SCH (09:20)
[2017-05-30] MEDS: TAMSULOSIN HCL 0.4 MG CAP.ER.24H (FP) PO SCH ×2 (09:20→21:29)
[2017-05-30] MEDS: APIXABAN 5 MG TABLET PO SCH ×2 (09:20→21:29)
[2017-05-30] MEDS: DEXTROSE 5%-0.45% SALINE 1,000 ML IV SCH (10:00)
--- NOTE | 2017-05-30 13:56 | PN ---
Progress Note, Physician History of Present Illness: patient stable no new issues looks good wbc trending down - Current Medication List Current Medications: Active Medications Apixaban (Eliquis -) 5 mg PO BID [facility] Last Admin: 05/30/17 09:20 Dose: 5 mg Finasteride (Proscar -) 5 mg PO DAILY [facility] Last Admin: 05/30/17 09:20 Dose: 5 mg Gabapentin (Neurontin -) 300 mg PO TID [facility] Last Admin: 05/30/17 06:28 Dose: 300 mg Dextrose/Sodium Chloride (D5-1/2ns -) 1,000 mls @ 75 mls/hr IV ASDIR [facility] Last Admin: 05/30/17 10:00 Dose: 75 mls/hr Vancomycin HCl 1,250 mg/ (Dextrose) 250 mls @ 166.667 mls/hr IVPB DAILY@1700 [facility] PRN Reason: Protocol Last Admin: 05/29/17 17:03 Dose: 166.667 mls/hr Insulin Aspart (Novolog Vial Sliding Scale -) 1 vial SQ ACHS [facility] PRN Reason: Protocol Last Admin: 05/30/17 11:59 Dose: 2 units Latanoprost (Xalatan 0.005% Eye Drops -) 1 drop OD HS [facility] Last Admin: 05/29/17 22:11 Dose: 1 drop Metoprolol Succinate (Toprol Xl -) 50 mg PO DAILY [facility] Last Admin: 05/30/17 09:19 Dose: 50 mg Tamsulosin HCl (Flomax -) 0.4 mg PO BID [facility] Last Admin: 05/30/17 09:20 Dose: 0.4 mg - Objective Vital Signs: Vital Signs Temperature 98.0 F 05/30/17 06:00 Pulse Rate 60 05/30/17 06:00 Respiratory Rate 20 05/30/17 06:00 Blood Pressure 164/56 05/30/17 06:00 O2 Sat by Pulse Oximetry (%) 98 05/29/17 20:59 Constitutional: Yes: No Distress, Calm Cardiovascular: Yes: Regular Rate and Rhythm Respiratory: Yes: Regular, CTA Bilaterally Gastrointestinal: Yes: Normal Bowel Sounds, Soft Musculoskeletal: Yes: WNL Extremities: Yes: Other Neurological: Yes: Alert, Other (aphasia,rt sided weakness) Psychiatric: Yes: Alert Labs: CBC, BMP 05/28/17 07:25 05/28/17 07:25 INR, PTT INR 1.76 (0.82-1.09) H 05/27/17 01:32 Assessment/Plan a - Problems (1) UTI (urinary tract infection) Code(s): N39.0 - URINARY TRACT INFECTION, SITE NOT SPECIFIED Qualifiers: Urinary tract infection type: acute cystitis Hematuria presence: without hematuria Qualified Code(s): N30.00 - Acute cystitis without hematuria (2) Systemic inflammatory response syndrome (SIRS) Code(s): R65.10 - SIRS OF NON-INFECTIOUS ORIGIN W/O ACUTE ORGAN DYSFUNCTION (3) Atrial fibrillation Code(s): I48.91 - UNSPECIFIED ATRIAL FIBRILLATION (4) Diabetes Code(s): E11.9 - TYPE 2 DIABETES MELLITUS WITHOUT COMPLICATIONS (5) HTN (hypertension) Code(s): I10 - ESSENTIAL (PRIMARY) HYPERTENSION cx noted organism noted urine cx noted plan continue abx for now await for wbc to normalize will check vanco levels await for repeat blood cx report
[2017-05-30] MEDS: VANCOMYCIN 1,250 MG in DEXTROSE 5%-WATER - 250 ML IVPB SCH (16:50)
[2017-05-30] MEDS: LATANOPROST 0.005% OPHTH SOLN 2.5ML BOTTLE OD SCH (21:30)
--- NOTE | 2017-05-30 23:31 | PN ---
Progress Note, Physician History of Present Illness: No new complaints - Current Medication List Current Medications: Active Medications Apixaban (Eliquis -) 5 mg PO BID [facility] Last Admin: 05/30/17 21:29 Dose: 5 mg Finasteride (Proscar -) 5 mg PO DAILY [facility] Last Admin: 05/30/17 09:20 Dose: 5 mg Gabapentin (Neurontin -) 300 mg PO TID [facility] Last Admin: 05/30/17 21:29 Dose: 300 mg Dextrose/Sodium Chloride (D5-1/2ns -) 1,000 mls @ 75 mls/hr IV ASDIR [facility] Last Admin: 05/30/17 10:00 Dose: 75 mls/hr Vancomycin HCl 1,250 mg/ (Dextrose) 250 mls @ 166.667 mls/hr IVPB DAILY@1700 [facility] PRN Reason: Protocol Last Admin: 05/30/17 16:50 Dose: 166.667 mls/hr Insulin Aspart (Novolog Vial Sliding Scale -) 1 vial SQ ACHS [facility] PRN Reason: Protocol Last Admin: 05/30/17 22:07 Dose: 2 units Latanoprost (Xalatan 0.005% Eye Drops -) 1 drop OD HS [facility] Last Admin: 05/30/17 21:30 Dose: 1 drop Metoprolol Succinate (Toprol Xl -) 50 mg PO DAILY [facility] Last Admin: 05/30/17 09:19 Dose: 50 mg Tamsulosin HCl (Flomax -) 0.4 mg PO BID [facility] Last Admin: 05/30/17 21:29 Dose: 0.4 mg - Objective Vital Signs: Vital Signs Temperature 98.7 F 05/30/17 18:00 Pulse Rate 68 05/30/17 18:00 Respiratory Rate 18 05/30/17 18:00 Blood Pressure 148/68 05/30/17 18:00 O2 Sat by Pulse Oximetry (%) 98 05/30/17 20:17 Constitutional: Yes: Well Nourished Neck: Yes: WNL, Supple Cardiovascular: Yes: WNL, Regular Rate and Rhythm Respiratory: Yes: WNL, Regular, CTA Bilaterally Gastrointestinal: Yes: WNL, Normal Bowel Sounds, Soft Extremities: Yes: WNL Edema: No Labs: CBC, BMP 05/28/17 07:25 05/28/17 07:25 INR, PTT INR 1.76 (0.82-1.09) H 05/27/17 01:32 Problem List - Problems (1) UTI (urinary tract infection) Code(s): N39.0 - URINARY TRACT INFECTION, SITE NOT SPECIFIED Qualifiers: Urinary tract infection type: acute cystitis Hematuria presence: without hematuria Qualified Code(s): N30.00 - Acute cystitis without hematuria (2) Systemic inflammatory response syndrome (SIRS) Code(s): R65.10 - SIRS OF NON-INFECTIOUS ORIGIN W/O ACUTE ORGAN DYSFUNCTION (3) Atrial fibrillation Code(s): I48.91 - UNSPECIFIED ATRIAL FIBRILLATION (4) Diabetes Code(s): E11.9 - TYPE 2 DIABETES MELLITUS WITHOUT COMPLICATIONS (5) HTN (hypertension) Code(s): I10 - ESSENTIAL (PRIMARY) HYPERTENSION
[2017-05-31] MEDS: GABAPENTIN 300 MG CAPSULE (FP) PO SCH ×3 (06:26→21:31)
[2017-05-31] MEDS: INSULIN SLIDING SCALE (NOVOLOG) 1 VIAL SQ SCH ×4 (06:26→21:31)
[2017-05-31] MEDS ORDERED: PT OWN MED DRAWER 7, Y5N ONE (10:24)
[2017-05-31] MEDS: FINASTERIDE 5 MG TABLET (FP) PO SCH (10:27)
[2017-05-31] MEDS: DEXTROSE 5%-0.45% SALINE 1,000 ML IV SCH ×2 (10:27→15:43)
[2017-05-31] MEDS: APIXABAN 5 MG TABLET PO SCH ×2 (10:27→21:30)
[2017-05-31] MEDS: TAMSULOSIN HCL 0.4 MG CAP.ER.24H (FP) PO SCH ×2 (10:27→21:31)
--- NOTE | 2017-05-31 12:55 | PN ---
Progress Note, Physician History of Present Illness: Pt seen and examined. Chart reviewed, labs noted. He is doing well. Remains afebrile. - Current Medication List Current Medications: Active Medications Apixaban (Eliquis -) 5 mg PO BID [facility] Last Admin: 05/31/17 10:27 Dose: 5 mg Finasteride (Proscar -) 5 mg PO DAILY [facility] Last Admin: 05/31/17 10:27 Dose: 5 mg Gabapentin (Neurontin -) 300 mg PO TID [facility] Last Admin: 05/31/17 06:26 Dose: 300 mg Dextrose/Sodium Chloride (D5-1/2ns -) 1,000 mls @ 75 mls/hr IV ASDIR [facility] Last Admin: 05/31/17 10:27 Dose: 75 mls/hr Vancomycin HCl 1,250 mg/ (Dextrose) 250 mls @ 166.667 mls/hr IVPB DAILY@1700 [facility] PRN Reason: Protocol Last Admin: 05/30/17 16:50 Dose: 166.667 mls/hr Insulin Aspart (Novolog Vial Sliding Scale -) 1 vial SQ ACHS [facility] PRN Reason: Protocol Last Admin: 05/31/17 12:18 Dose: Not Given Latanoprost (Xalatan 0.005% Eye Drops -) 1 drop OD HS [facility] Last Admin: 05/30/17 21:30 Dose: 1 drop Metoprolol Succinate (Toprol Xl -) 50 mg PO DAILY [facility] Last Admin: 05/31/17 10:27 Dose: 50 mg Tamsulosin HCl (Flomax -) 0.4 mg PO BID [facility] Last Admin: 05/31/17 10:27 Dose: 0.4 mg - Objective Vital Signs: Vital Signs Temperature 98.5 F 05/31/17 09:01 Pulse Rate 60 05/31/17 09:01 Respiratory Rate 18 05/31/17 09:01 Blood Pressure 166/94 05/31/17 09:01 O2 Sat by Pulse Oximetry (%) 98 05/30/17 20:17 Constitutional: Yes: No Distress, Calm Cardiovascular: Yes: Regular Rate and Rhythm Respiratory: Yes: CTA Bilaterally Gastrointestinal: Yes: Normal Bowel Sounds, Soft Genitourinary: Yes: WNL Psychiatric: Yes: Alert Labs: CBC, BMP 05/28/17 07:25 05/28/17 07:25 INR, PTT INR 1.76 (0.82-1.09) H 05/27/17 01:32 Microbiology 05/30/17 08:02 Blood - Peripheral Venous Blood Culture - Preliminary NO GROWTH OBTAINED AFTER 24 HOURS, INCUBATION TO CONTINUE FOR 4 DAYS. 05/30/17 07:30 Blood - Peripheral Venous Blood Culture - Preliminary NO GROWTH OBTAINED AFTER 24 HOURS, INCUBATION TO CONTINUE FOR 4 DAYS. 05/27/17 00:59 Blood - Peripheral Venous Blood Culture - Preliminary NO GROWTH OBTAINED AFTER 96 HOURS, INCUBATION TO CONTINUE FOR 1 DAYS. 05/27/17 00:59 Blood - Peripheral Venous Blood Culture - Preliminary Staphylococcus Coagulase Neg 05/26/17 Unknown Urine - Urine Clean Catch Urine Culture - Final Enterococcus Faecium 05/27/17 01:04 Nasopharyngeal Swab Influenza Types A,B Antigen ([place]) - Final 05/27/17 01:04 Nasopharyngeal Swab - Final Problem List - Problems (1) UTI (urinary tract infection) Code(s): N39.0 - URINARY TRACT INFECTION, SITE NOT SPECIFIED Qualifiers: Urinary tract infection type: acute cystitis Hematuria presence: without hematuria Qualified Code(s): N30.00 - Acute cystitis without hematuria (2) Atrial fibrillation Code(s): I48.91 - UNSPECIFIED ATRIAL FIBRILLATION (3) Diabetes Code(s): E11.9 - TYPE 2 DIABETES MELLITUS WITHOUT COMPLICATIONS (4) HTN (hypertension) Code(s): I10 - ESSENTIAL (PRIMARY) HYPERTENSION Assessment/Plan Enterococcal UTI DM -- pt afebrile, leukocytosis resolved - blood cultures - no growth in 24h -- cont. Vancomycin
[2017-05-31 13:39] LABS: BASO % 0.6 % (0-2.0); EOS % 4.5 % (0-4.5); HEMATOCRIT 37.8 % (35.4-49); HEMOGLOBIN 11.9 GM/dL (11.7-16.9); LYMPH % 23.1 % (8-40); MCH 29.2 pg (25.7-33.7); MCHC 31.4 g/dl (32.0-35.9); MEAN PLT VOLUME 10.2 fl (7.5-11.1); MONO % 8.2 % (3.8-10.2); NEUT % 63.6 % (42.8-82.8); PLATELET COUNT 181 K/MM3 (134-434); RBC 4.07 M/mm3 (4.00-5.60); WHITE BLOOD COUNT 8.2 K/mm3 (4.0-10.0)
[2017-05-31 13:44] LABS: ALBUMIN 3.1 g/dl (3.4-5.0); ANION GAP 8 (8-16); BILIRUBIN,TOTAL 0.4 mg/dL (0.2-1.0); BLOOD UREA NITROGEN 8 mg/dL (7-18); CALCIUM 8.2 mg/dL (8.5-10.1); CHLORIDE 106 mmol/L (98-107); CO2 28 mmol/L (21-32); CREATININE 0.9 mg/dL (0.7-1.3); GLUCOSE,RANDOM 88 mg/dL (74-106); POTASSIUM 4.2 mmol/L (3.5-5.1); SGOT/AST 21 U/L (15-37); SGPT/ALT 31 U/L (12-78); SODIUM 142 mmol/L (136-145)
[2017-05-31 13:45] LABS: ALK PHOS 57 U/L (45-117)
--- NOTE | 2017-05-31 14:23 | PN ---
Progress Note (short form) - Note Progress Note: urology note. pt. voiding well abd. soft, n/t bs++.urologically stable. will f/ u in office
[2017-05-31] MEDS: VANCOMYCIN 1,250 MG in DEXTROSE 5%-WATER - 250 ML IVPB SCH (17:13)
[2017-05-31] MEDS: LATANOPROST 0.005% OPHTH SOLN 2.5ML BOTTLE OD SCH (21:32)
--- NOTE | 2017-05-31 22:17 | PN ---
Progress Note, Physician History of Present Illness: No new complaints - Current Medication List Current Medications: Active Medications Apixaban (Eliquis -) 5 mg PO BID [facility] Last Admin: 05/31/17 21:30 Dose: 5 mg Finasteride (Proscar -) 5 mg PO DAILY [facility] Last Admin: 05/31/17 10:27 Dose: 5 mg Gabapentin (Neurontin -) 300 mg PO TID [facility] Last Admin: 05/31/17 21:31 Dose: 300 mg Dextrose/Sodium Chloride (D5-1/2ns -) 1,000 mls @ 75 mls/hr IV ASDIR [facility] Last Admin: 05/31/17 15:43 Dose: Not Given Vancomycin HCl 1,250 mg/ (Dextrose) 250 mls @ 166.667 mls/hr IVPB DAILY@1700 [facility] PRN Reason: Protocol Last Admin: 05/31/17 17:13 Dose: 166.667 mls/hr Insulin Aspart (Novolog Vial Sliding Scale -) 1 vial SQ ACHS [facility] PRN Reason: Protocol Last Admin: 05/31/17 21:31 Dose: Not Given Latanoprost (Xalatan 0.005% Eye Drops -) 1 drop OD HS [facility] Last Admin: 05/31/17 21:32 Dose: 1 drop Metoprolol Succinate (Toprol Xl -) 50 mg PO DAILY [facility] Last Admin: 05/31/17 10:27 Dose: 50 mg Tamsulosin HCl (Flomax -) 0.4 mg PO BID [facility] Last Admin: 05/31/17 21:31 Dose: 0.4 mg - Objective Vital Signs: Vital Signs Temperature 97.8 F 05/31/17 21:09 Pulse Rate 70 05/31/17 21:09 Respiratory Rate 20 05/31/17 21:09 Blood Pressure 149/70 05/31/17 21:09 O2 Sat by Pulse Oximetry (%) 98 05/31/17 20:08 Constitutional: Yes: Well Nourished HENT: Yes: WNL Neck: Yes: WNL, Supple Cardiovascular: Yes: WNL, Regular Rate and Rhythm Respiratory: Yes: WNL, Regular, CTA Bilaterally Gastrointestinal: Yes: WNL, Normal Bowel Sounds, Soft Extremities: Yes: WNL Edema: No Labs: CBC, BMP 05/31/17 07:00 05/31/17 07:00 INR, PTT INR 1.76 (0.82-1.09) H 05/27/17 01:32 Problem List - Problems (1) UTI (urinary tract infection) Assessment/Plan: Sepsis due to UTI Bacteremia Blood culture (+) for staphylococcus ?Contaminant Repeat BC pending Urine culture (+) enterococcus IV Vanco Code(s): N39.0 - URINARY TRACT INFECTION, SITE NOT SPECIFIED Qualifiers: Urinary tract infection type: acute cystitis Hematuria presence: without hematuria Qualified Code(s): N30.00 - Acute cystitis without hematuria (2) Systemic inflammatory response syndrome (SIRS) Assessment/Plan: Cont IV fluids Monitor cultures Code(s): R65.10 - SIRS OF NON-INFECTIOUS ORIGIN W/O ACUTE ORGAN DYSFUNCTION (3) Atrial fibrillation Assessment/Plan: Heart rate controlled Cont eliquis Code(s): I48.91 - UNSPECIFIED ATRIAL FIBRILLATION (4) Diabetes Code(s): E11.9 - TYPE 2 DIABETES MELLITUS WITHOUT COMPLICATIONS (5) HTN (hypertension) Code(s): I10 - ESSENTIAL (PRIMARY) HYPERTENSION
[2017-06-01] MEDS: GABAPENTIN 300 MG CAPSULE (FP) PO SCH ×4 (06:23→21:13)
[2017-06-01] MEDS: DEXTROSE 5%-0.45% SALINE 1,000 ML IV SCH ×2 (06:26→14:21)
[2017-06-01] MEDS: INSULIN SLIDING SCALE (NOVOLOG) 1 VIAL SQ SCH ×4 (06:27→21:14)
[2017-06-01] MEDS: TAMSULOSIN HCL 0.4 MG CAP.ER.24H (FP) PO SCH ×2 (10:03→21:14)
[2017-06-01] MEDS: FINASTERIDE 5 MG TABLET (FP) PO SCH (10:03)
[2017-06-01] MEDS: APIXABAN 5 MG TABLET PO SCH ×2 (10:03→21:13)
--- NOTE | 2017-06-01 13:38 | PN ---
Progress Note, Physician History of Present Illness: Pt is alert, afebrile. No new events noted. - Current Medication List Current Medications: Active Medications Apixaban (Eliquis -) 5 mg PO BID [facility] Last Admin: 06/01/17 10:03 Dose: 5 mg Finasteride (Proscar -) 5 mg PO DAILY [facility] Last Admin: 06/01/17 10:03 Dose: 5 mg Gabapentin (Neurontin -) 300 mg PO TID [facility] Last Admin: 06/01/17 06:23 Dose: 300 mg Dextrose/Sodium Chloride (D5-1/2ns -) 1,000 mls @ 75 mls/hr IV ASDIR [facility] Last Admin: 06/01/17 06:26 Dose: 75 mls/hr Vancomycin HCl 1,250 mg/ (Dextrose) 250 mls @ 166.667 mls/hr IVPB DAILY@1700 [facility] PRN Reason: Protocol Last Admin: 05/31/17 17:13 Dose: 166.667 mls/hr Insulin Aspart (Novolog Vial Sliding Scale -) 1 vial SQ ACHS [facility] PRN Reason: Protocol Last Admin: 06/01/17 12:00 Dose: Not Given Latanoprost (Xalatan 0.005% Eye Drops -) 1 drop OD HS [facility] Last Admin: 05/31/17 21:32 Dose: 1 drop Metoprolol Succinate (Toprol Xl -) 50 mg PO DAILY [facility] Last Admin: 06/01/17 10:03 Dose: 50 mg Tamsulosin HCl (Flomax -) 0.4 mg PO BID [facility] Last Admin: 06/01/17 10:03 Dose: 0.4 mg - Objective Vital Signs: Vital Signs Temperature 98.4 F 06/01/17 04:47 Pulse Rate 76 06/01/17 10:00 Respiratory Rate 20 06/01/17 10:00 Blood Pressure 140/80 06/01/17 10:00 O2 Sat by Pulse Oximetry (%) 98 05/31/17 20:08 Constitutional: Yes: No Distress Cardiovascular: Yes: Regular Rate and Rhythm Respiratory: Yes: Regular Gastrointestinal: Yes: Normal Bowel Sounds, Soft Neurological: Yes: Alert Labs: CBC, BMP 05/31/17 07:00 05/31/17 07:00 INR, PTT INR 1.76 (0.82-1.09) H 05/27/17 01:32 05/31/17 : vancomycin trough 12 Problem List - Problems (1) UTI (urinary tract infection) Code(s): N39.0 - URINARY TRACT INFECTION, SITE NOT SPECIFIED Qualifiers: Urinary tract infection type: acute cystitis Hematuria presence: without hematuria Qualified Code(s): N30.00 - Acute cystitis without hematuria (2) Atrial fibrillation Code(s): I48.91 - UNSPECIFIED ATRIAL FIBRILLATION (3) Diabetes Code(s): E11.9 - TYPE 2 DIABETES MELLITUS WITHOUT COMPLICATIONS (4) HTN (hypertension) Code(s): I10 - ESSENTIAL (PRIMARY) HYPERTENSION Assessment/Plan SIRS Enterococcal UTI DM -- pt is afebrile, without leukocytosis, blood cultures negative - renal function normal -- cont. antibiotic
[2017-06-01] MEDS: VANCOMYCIN 1,250 MG in DEXTROSE 5%-WATER - 250 ML IVPB SCH (16:53)
--- NOTE | 2017-06-01 20:53 | PN ---
Progress Note, Physician History of Present Illness: No new complaints - Current Medication List Current Medications: Active Medications Apixaban (Eliquis -) 5 mg PO BID [facility] Last Admin: 06/01/17 10:03 Dose: 5 mg Finasteride (Proscar -) 5 mg PO DAILY [facility] Last Admin: 06/01/17 10:03 Dose: 5 mg Gabapentin (Neurontin -) 300 mg PO TID [facility] Last Admin: 06/01/17 14:24 Dose: 300 mg Dextrose/Sodium Chloride (D5-1/2ns -) 1,000 mls @ 75 mls/hr IV ASDIR [facility] Last Admin: 06/01/17 14:21 Dose: 75 mls/hr Vancomycin HCl 1,250 mg/ (Dextrose) 250 mls @ 166.667 mls/hr IVPB DAILY@1700 [facility] PRN Reason: Protocol Last Admin: 06/01/17 16:53 Dose: 166.667 mls/hr Insulin Aspart (Novolog Vial Sliding Scale -) 1 vial SQ ACHS [facility] PRN Reason: Protocol Last Admin: 06/01/17 16:54 Dose: 2 units Latanoprost (Xalatan 0.005% Eye Drops -) 1 drop OD HS [facility] Last Admin: 05/31/17 21:32 Dose: 1 drop Metoprolol Succinate (Toprol Xl -) 50 mg PO DAILY [facility] Last Admin: 06/01/17 10:03 Dose: 50 mg Tamsulosin HCl (Flomax -) 0.4 mg PO BID [facility] Last Admin: 06/01/17 10:03 Dose: 0.4 mg - Objective Vital Signs: Vital Signs Temperature 97.9 F 06/01/17 13:56 Pulse Rate 63 06/01/17 13:56 Respiratory Rate 20 06/01/17 10:00 Blood Pressure 149/70 06/01/17 13:56 O2 Sat by Pulse Oximetry (%) 98 05/31/17 20:08 Constitutional: Yes: Well Nourished HENT: Yes: WNL Neck: Yes: WNL, Supple Cardiovascular: Yes: WNL, Regular Rate and Rhythm Respiratory: Yes: WNL, Regular, CTA Bilaterally Gastrointestinal: Yes: WNL, Normal Bowel Sounds, Soft Extremities: Yes: WNL Edema: No Labs: CBC, BMP 05/31/17 07:00 05/31/17 07:00 INR, PTT INR 1.76 (0.82-1.09) H 05/27/17 01:32 Problem List - Problems (1) UTI (urinary tract infection) Assessment/Plan: Sepsis due to UTI Bacteremia Blood culture (+) for staphylococcus Repeat BC remaining negative Urine culture (+) enterococcus IV Vanco Code(s): N39.0 - URINARY TRACT INFECTION, SITE NOT SPECIFIED Qualifiers: Urinary tract infection type: acute cystitis Hematuria presence: without hematuria Qualified Code(s): N30.00 - Acute cystitis without hematuria (2) BPH (benign prostatic hyperplasia) Assessment/Plan: Cont proscar/flomax Code(s): N40.0 - BENIGN PROSTATIC HYPERPLASIA WITHOUT LOWER URINRY TRACT SYMP (3) Atrial fibrillation Code(s): I48.91 - UNSPECIFIED ATRIAL FIBRILLATION (4) Diabetes Code(s): E11.9 - TYPE 2 DIABETES MELLITUS WITHOUT COMPLICATIONS (5) HTN (hypertension) Code(s): I10 - ESSENTIAL (PRIMARY) HYPERTENSION (6) Systemic inflammatory response syndrome (SIRS) Assessment/Plan: Resolved DC IVF Code(s): R65.10 - SIRS OF NON-INFECTIOUS ORIGIN W/O ACUTE ORGAN DYSFUNCTION
[2017-06-01] MEDS ORDERED: INSULIN (NOVOLOG) ASPART 100 UNITS/ML 10ML VIAL ONE (20:59)
[2017-06-01] MEDS ORDERED: PT OWN MED DRAWER 7, Y5N ONE (20:59)
[2017-06-01] MEDS: LATANOPROST 0.005% OPHTH SOLN 2.5ML BOTTLE OD SCH (21:13)
[2017-06-02] MEDS: GABAPENTIN 300 MG CAPSULE (FP) PO SCH ×2 (06:02→13:17)
[2017-06-02] MEDS: INSULIN SLIDING SCALE (NOVOLOG) 1 VIAL SQ SCH ×2 (06:07→12:00)
[2017-06-02 06:52] VITALS: PULSE 60
[2017-06-02 07:24] LABS: BASO % 0.9 % (0-2.0); EOS % 3.9 % (0-4.5); HEMATOCRIT 35.5 % (35.4-49); HEMOGLOBIN 11.7 GM/dL (11.7-16.9); MCH 29.9 pg (25.7-33.7); MCHC 32.9 g/dl (32.0-35.9); MEAN CELL VOLUME 90.9 fl (80-96); MEAN PLT VOLUME 9.4 fl (7.5-11.1); MONO % 7.6 % (3.8-10.2); NEUT % 64.6 % (42.8-82.8); PLATELET COUNT 236 K/MM3 (134-434); RBC 3.91 M/mm3 (4.00-5.60); RDW 13.7 % (11.9-15.9); WHITE BLOOD COUNT 9.3 K/mm3 (4.0-10.0)
[2017-06-02 07:58] LABS: ANION GAP 7 (8-16); BLOOD UREA NITROGEN 9 mg/dL (7-18); CALCIUM 8.5 mg/dL (8.5-10.1); CHLORIDE 105 mmol/L (98-107); CO2 30 mmol/L (21-32); GLUCOSE,RANDOM 92 mg/dL (74-106); SODIUM 142 mmol/L (136-145)
[2017-06-02 08:02] LABS: ALK PHOS 65 U/L (45-117); BILIRUBIN,TOTAL 0.5 mg/dL (0.2-1.0); SGOT/AST 19 U/L (15-37); SGPT/ALT 28 U/L (12-78); TOT PROT 6.9 g/dl (6.4-8.2)
[2017-06-02] MEDS ORDERED: PT OWN MED DRAWER 7, Y5N ONE (09:30)
[2017-06-02] MEDS: FINASTERIDE 5 MG TABLET (FP) PO SCH (09:34)
[2017-06-02] MEDS: APIXABAN 5 MG TABLET PO SCH (09:34)
[2017-06-02] MEDS: TAMSULOSIN HCL 0.4 MG CAP.ER.24H (FP) PO SCH (09:35)
--- NOTE | 2017-06-02 11:56 | PN ---
Progress Note, Physician History of Present Illness: patient stable no new issues looks good wbc normal - Current Medication List Current Medications: Active Medications Apixaban (Eliquis -) 5 mg PO BID [facility] Last Admin: 06/02/17 09:34 Dose: 5 mg Finasteride (Proscar -) 5 mg PO DAILY [facility] Last Admin: 06/02/17 09:34 Dose: 5 mg Gabapentin (Neurontin -) 300 mg PO TID [facility] Last Admin: 06/02/17 06:02 Dose: 300 mg Insulin Aspart (Novolog Vial Sliding Scale -) 1 vial SQ ACHS [facility] PRN Reason: Protocol Last Admin: 06/02/17 06:07 Dose: Not Given Latanoprost (Xalatan 0.005% Eye Drops -) 1 drop OD HS [facility] Last Admin: 06/01/17 21:13 Dose: 1 drop Metoprolol Succinate (Toprol Xl -) 50 mg PO DAILY [facility] Last Admin: 06/02/17 09:34 Dose: 50 mg Tamsulosin HCl (Flomax -) 0.4 mg PO BID [facility] Last Admin: 06/02/17 09:35 Dose: 0.4 mg - Objective Vital Signs: Vital Signs Temperature 97.9 F 06/02/17 09:00 Pulse Rate 60 06/02/17 09:00 Respiratory Rate 18 06/02/17 09:00 Blood Pressure 149/61 06/02/17 09:00 O2 Sat by Pulse Oximetry (%) 98 06/02/17 09:00 Constitutional: Yes: No Distress, Calm Cardiovascular: Yes: Regular Rate and Rhythm Respiratory: Yes: Regular, CTA Bilaterally Gastrointestinal: Yes: Normal Bowel Sounds, Soft Musculoskeletal: Yes: WNL Extremities: Yes: WNL Neurological: Yes: Alert Psychiatric: Yes: Alert Labs: CBC, BMP 06/02/17 06:35 06/02/17 06:35 INR, PTT INR 1.76 (0.82-1.09) H 05/27/17 01:32 Assessment/Plan a - Problems (1) UTI (urinary tract infection) Code(s): N39.0 - URINARY TRACT INFECTION, SITE NOT SPECIFIED Qualifiers: Urinary tract infection type: acute cystitis Hematuria presence: without hematuria Qualified Code(s): N30.00 - Acute cystitis without hematuria (2) Systemic inflammatory response syndrome (SIRS) Code(s): R65.10 - SIRS OF NON-INFECTIOUS ORIGIN W/O ACUTE ORGAN DYSFUNCTION (3) Atrial fibrillation Code(s): I48.91 - UNSPECIFIED ATRIAL FIBRILLATION (4) Diabetes Code(s): E11.9 - TYPE 2 DIABETES MELLITUS WITHOUT COMPLICATIONS (5) HTN (hypertension) Code(s): I10 - ESSENTIAL (PRIMARY) HYPERTENSION cx noted organism noted urine cx noted plan will stop abx stable rest as per primary team
[2017-06-02 14:09] VITALS: BP 139/78; TEMP 98.6
--- NOTE | 2017-06-02 23:24 | DS ---
Physical Examination Vital Signs: Vital Signs Temperature 98.6 F 06/02/17 14:00 Pulse Rate 60 06/02/17 14:00 Respiratory Rate 17 06/02/17 14:00 Blood Pressure 139/78 06/02/17 14:00 O2 Sat by Pulse Oximetry (%) 98 06/02/17 09:00 Labs: CBC, BMP 06/02/17 06:35 06/02/17 06:35 Discharge Summary Reason For Visit: URINARY TRACT INFECTION, FEVER Condition: Good - Instructions Diet, Activity, Other Instructions: 2 gram sodium and 2200 calorie diabetic diet See Dr Tripp in 1 week Referrals: William Gongora [Primary Care Provider] - Disposition: HOME - Home Medications Comprehensive Discharge Medication List: Ambulatory Orders Metoprolol Succinate [Toprol XL -] 50 mg PO DAILY 10/03/14 Apixaban [Eliquis] 5 mg PO BID 06/03/15 Alphagan P 0.1% - 1 drop OS TID 04/04/17 Latanoprost 0.005% Eye Drops 1 drop OD DAILY 04/04/17 Finasteride 5 mg PO DAILY 05/27/17 Gabapentin 300 mg PO TID 05/27/17 Tamsulosin HCl [Flomax] 0.4 mg PO BID 05/27/17 Tamsulosin HCl [Flomax -] 0.4 mg PO BID #30 cap.er.24h 06/02/17
== END 2017-06-02 17:56 | disposition home or self-care (01) | DRG 872 ==
LOC: JER 21:46 → JERBED 05-27 02:02 → J6S 05-27 17:33
PROVIDERS: ADMIT Internal Medicine; ATTEND Internal Medicine
DX: A41.9 Sepsis, unspecified organism (principal); I69.354 Hemiplegia and hemiparesis following cerebral infarction affecting left non-dominant side; N39.0 Urinary tract infection, site not specified; I69.320 Aphasia following cerebral infarction; I48.91 Unspecified atrial fibrillation; Z79.01 Long term (current) use of anticoagulants; Z95.0 Presence of cardiac pacemaker; N40.0 Benign prostatic hyperplasia without lower urinary tract symptoms; E11.22 Type 2 diabetes mellitus with diabetic chronic kidney disease; I12.9 Hypertensive chronic kidney disease with stage 1 through stage 4 chronic kidney disease, or unspecified chronic kidney disease; N18.9 Chronic kidney disease, unspecified; B95.2 Enterococcus as the cause of diseases classified elsewhere
CPT/HCPCS: 36415; 71045-TC; 80053; 81003; 81015; 82803; 82962; 83605; 85025; 85610; 87040; 87086; 87186; 87804; 93005; 93010; 99285-25; G0480